=== PATIENT | female | born 1955 | race Caucasian/White ===

== ENCOUNTER 2020-10-25 15:57 | Inpatient (IN) | payer MEDICARE, OTHER ==
[~2020-10-25] VITALS: Ht 162.6 cm; Wt 46.4 kg
--- NOTE | 2020-10-25 16:20 | NUR ---
Dr Durant at the bedside for MSE.
[2020-10-25 17:00] LABS: BASOPHILS # (AUTO) 0.1 K/uL (0.0-8.0); BASOPHILS % (AUTO) 0.8 % (0.0-2.0); EOSINOPHILS % (AUTO) 0.4 % (0.0-7.0); HEMATOCRIT 38.5 % (31.2-41.9); HEMOGLOBIN 12.7 g/dL (10.9-14.3); LYMPHOCYTES # (AUTO) 1.6 K/uL (20.0-40.0); LYMPHOCYTES % (AUTO) 16.7 % (20.5-51.5); MEAN CORPUSCULAR HGB CONC 33 g/dL (32.3-35.6); MEAN CORPUSCULAR VOLUME 93.8 fL (75.5-95.3); MONOCYTES # (AUTO) 0.5 K/uL (2.0-10.0); MONOCYTES % (AUTO) 5.5 % (0.0-11.0); NEUTROPHILS # (AUTO) 7.1 K/uL (1.8-8.9); NEUTROPHILS % (AUTO) 76.6 % (38.5-71.5); PLATELET COUNT (AUTO) 234 K/uL (179-408); RED BLOOD CELL COUNT(AUTO) 4.11 MIL/uL (3.63-4.92); WHITE BLOOD COUNT (AUTO) 9.3 K/uL (3.8-11.8)
[2020-10-25] MEDS ORDERED: IV NORMAL SALINE 500 ML BAG IV ONE (17:00)
--- NOTE | 2020-10-25 17:01 | NUR ---
Attempted x3 to place HL in patient, but unable to. Dr Durant order midline/PICC Per pt request.
[2020-10-25 17:08] LABS: CREATININE 0.8 mg/dL (0.6-1.3)
[2020-10-25 17:25] LABS: BILIRUBIN,DIRECT 0.1 mg/dL (0.0-0.2); BILIRUBIN,TOTAL 0.3 mg/dL (0.2-1.0); TOTAL PROTEIN, SERUM 8.5 g/dL (6.4-8.2)
--- NOTE | 2020-10-25 18:02 | NUR ---
Called to supervisorto get bed for admit to M/S, No bed avail.
--- NOTE | 2020-10-25 19:43 | NUR ---
Patient will be going into [facility]
[2020-10-25] MEDS ORDERED: HYDROCODONE/APAP 5-325MG TABLET PO PRN (20:00)
[2020-10-25] MEDS ORDERED: MAGNESIUM HYDROXIDE 30 ML LIQUID UDC PO PRN (20:00)
[2020-10-25] MEDS ORDERED: Z GUARD REMEDY PASTE 57 GM TUBE TOP PRN (20:00)
[2020-10-25] MEDS ORDERED: ONDANSETRON 4 MG/2 ML VIAL IV PRN (20:00)
--- NOTE | 2020-10-25 20:07 | NUR ---
Gave report to Med Surg nurse Leta.
--- NOTE | 2020-10-25 20:50 | NUR ---
Admitted a 65 y/o female to [facility] with admitting diagnosis of Sacral wound and FTT. Pt is ambulatory, transferred to bed by herself. Pt is A&Ox4, verbally responsive and able to make needs known. Head to toe assessment done, L posterior hip wound noted. Gets SOB on exertion. RAYMOND midline intact and patent. Admission care rendered, belongings checked and at bedside. Safety measures initiated, call light within reach, will continue to monitor.
--- NOTE | 2020-10-25 20:54 | NUR ---
Pt. admitted to tele, under care of Dr. Wall Dx: left decupitis Belongs List completed
[2020-10-25 21:17] VITALS: BP 137/79
[2020-10-25] MEDS ORDERED: IPRATROPIUM BROMIDE 0.5 MG/2.5 ML NEBU NEB PRN ×2 (21:45→22:00)
[2020-10-25] MEDS: ACETAMINOPHEN 325 MG TABLET PO PRN (22:04)
[2020-10-26] MEDS: ALBUTEROL SULFATE 1.25 MG/3 ML NEBU NEB PRN ×2 (01:20→21:13)
[2020-10-26] MEDS: IPRATROPIUM BROMIDE 0.5 MG/2.5 ML NEBU NEB PRN ×2 (01:20→21:13)
[2020-10-26 04:00] VITALS: BP 135/73
[2020-10-26 06:32] LABS: BASOPHILS # (AUTO) 0.1 K/uL (0.0-8.0); BASOPHILS % (AUTO) 1.1 % (0.0-2.0); EOSINOPHILS # (AUTO) 0.2 K/uL (0.0-0.7); EOSINOPHILS % (AUTO) 2.4 % (0.0-7.0); HEMATOCRIT 36.9 % (31.2-41.9); HEMOGLOBIN 12.1 g/dL (10.9-14.3); LYMPHOCYTES # (AUTO) 2.7 K/uL (20.0-40.0); LYMPHOCYTES % (AUTO) 40.6 % (20.5-51.5); MEAN CORPUSCULAR HEMOGLOBIN 31.1 uug (24.7-32.8); MEAN CORPUSCULAR HGB CONC 33 g/dL (32.3-35.6); MEAN CORPUSCULAR VOLUME 94.7 fL (75.5-95.3); MONOCYTES # (AUTO) 0.5 K/uL (2.0-10.0); NEUTROPHILS # (AUTO) 3.2 K/uL (1.8-8.9); NEUTROPHILS % (AUTO) 47.9 % (38.5-71.5); PLATELET COUNT (AUTO) 201 K/uL (179-408); WHITE BLOOD COUNT (AUTO) 6.7 K/uL (3.8-11.8)
--- NOTE | 2020-10-26 06:34 | NUR ---
Slept intermittently through the night. No s/s of acute distress, denies any pain or discomfort. Patient tolerated medications well. IV access on RAYMOND midline intact and patent. Pending wound consult. Will endorse to incoming nurse.
[2020-10-26 06:54] LABS: THYROID STIMULATING HORMONE 3.658 mIU/mL (0.358-3.740)
[2020-10-26 07:02] LABS: CREATININE 0.9 mg/dL (0.6-1.3); MAGNESIUM 2.1 mg/dL (1.8-2.4); PHOSPHOROUS 4.4 mg/dL (2.5-4.9); POTASSIUM 4.1 mmol/L (3.5-5.1)
[2020-10-26] MEDS: PANTOPRAZOLE SODIUM 40 MG TABLET.DR PO SCH (07:11)
--- NOTE | 2020-10-26 11:16 | NUR ---
WOUND CARE CONSULT: PT PRESENTS WITH STAGE 4 ULCER TO LEFT BUTTOCK/HIP AREA, PRESENT ON ADMISSION. RECOMMEND SURGICAL CONSULT. DR MONGE NOTIFIED OF CONSULT REQUEST. RECOMMENDATIONS MADE FOR SKIN PROTECTION. DISCUSSED WITH NURSING STAFF. MD IN AGREEMENT WITH PLAN OF CARE.
[2020-10-26 11:32] VITALS: BP 126/78
[2020-10-26 16:00] VITALS: BP 156/84
[2020-10-26] MEDS ORDERED: LORAZEPAM 1 MG TABLET PO ONE (20:15)
[2020-10-26 20:16] VITALS: BP 147/66
[2020-10-26] MEDS: ACETAMINOPHEN 325 MG TABLET PO PRN (21:26)
[2020-10-27 04:21] VITALS: BP 152/69
--- NOTE | 2020-10-27 05:28 | NUR ---
Pt slept throughout the night. Denies pain or SOB. Tolerated all medications given. Wound care to left hip provided. Safety and comfort provided. No other issues or concerns at this time, will endorse to day shift.
[2020-10-27] MEDS: PANTOPRAZOLE SODIUM 40 MG TABLET.DR PO SCH (06:12)
[2020-10-27] MEDS: ACETAMINOPHEN 325 MG TABLET PO PRN ×2 (06:28→16:44)
[2020-10-27 06:40] LABS: BASOPHILS # (AUTO) 0.1 K/uL (0.0-8.0); EOSINOPHILS # (AUTO) 0.2 K/uL (0.0-0.7); EOSINOPHILS % (AUTO) 2.5 % (0.0-7.0); HEMOGLOBIN 12.1 g/dL (10.9-14.3); LYMPHOCYTES # (AUTO) 1.9 K/uL (20.0-40.0); LYMPHOCYTES % (AUTO) 32.2 % (20.5-51.5); MEAN CORPUSCULAR HEMOGLOBIN 30.9 uug (24.7-32.8); MEAN CORPUSCULAR HGB CONC 33 g/dL (32.3-35.6); MEAN CORPUSCULAR VOLUME 94.2 fL (75.5-95.3); MONOCYTES # (AUTO) 0.4 K/uL (2.0-10.0); MONOCYTES % (AUTO) 7.4 % (0.0-11.0); NEUTROPHILS # (AUTO) 3.4 K/uL (1.8-8.9); NEUTROPHILS % (AUTO) 56.9 % (38.5-71.5); PLATELET COUNT (AUTO) 203 K/uL (179-408); RED BLOOD CELL COUNT(AUTO) 3.93 MIL/uL (3.63-4.92)
[2020-10-27 07:19] LABS: CREATININE 0.5 mg/dL (0.6-1.3); MAGNESIUM 2.1 mg/dL (1.8-2.4); PHOSPHOROUS 4.3 mg/dL (2.5-4.9); POTASSIUM 4.2 mmol/L (3.5-5.1)
[2020-10-27] MEDS: ENSURE CLEAR 240 ML LIQUID (MIX BERRY) PO SCH (08:02)
[2020-10-27] MEDS: ALBUTEROL SULFATE 1.25 MG/3 ML NEBU NEB PRN ×2 (09:25→15:10)
[2020-10-27] MEDS: IPRATROPIUM BROMIDE 0.5 MG/2.5 ML NEBU NEB PRN ×2 (09:25→15:10)
[2020-10-27] MEDS: SODIUM HYPOCHLORITE 0.25% (HALF STRENGTH) 480 ML BOTTLE TOP SCH (10:30)
[2020-10-27 12:00] VITALS: BP 155/68
[2020-10-27 15:32] VITALS: BP 138/64
--- NOTE | 2020-10-27 16:48 | NUR ---
pt is refusing to do the wound dressing made aware
--- NOTE | 2020-10-27 19:00 | NUR ---
RECD PT IN BED,ALERT AND ORIENTED, NEEDS ATTENDED TO, VITAL SIGNS TAKEN AND RECORDED.
[2020-10-27 20:00] VITALS: BP 141/57
[2020-10-27] MEDS: LORAZEPAM 1 MG TABLET PO PRN (20:23)
--- NOTE | 2020-10-27 20:23 | NUR ---
REQUESTED ATIVAN 1MG. P.O. TO HELP WITH HER ANXIETY AND AGITATION, RESTED FAIRLY WELL,MIDLINE ON RIGHT UPPER ARM ,FLUSHED PER PROTOCOL, RESP TREATMENTS GIVEN ORDERE, TOLERATED WELL.SLEPT ON AND OFF.
--- NOTE | 2020-10-28 00:18 | NUR ---
WOUND CARE RENDERED TO LEFT HIP DECUB.HS CARE DONE, AMBULATED AROUND THE UNIT.
--- NOTE | 2020-10-28 03:34 | NUR ---
RESTED FAIRLY WELL.KEPT WARM AND COMFORTABLE.
[2020-10-28 04:00] VITALS: BP 138/66
--- NOTE | 2020-10-28 06:18 | NUR ---
UNEVENTFUL NOC, SLEPT WELL, NO DISTRESS NOTED.
[2020-10-28 06:25] LABS: BASOPHILS % (AUTO) 0.6 % (0.0-2.0); EOSINOPHILS # (AUTO) 0.1 K/uL (0.0-0.7); EOSINOPHILS % (AUTO) 1.6 % (0.0-7.0); HEMATOCRIT 38.3 % (31.2-41.9); HEMOGLOBIN 12.5 g/dL (10.9-14.3); LYMPHOCYTES # (AUTO) 1.6 K/uL (20.0-40.0); LYMPHOCYTES % (AUTO) 24.4 % (20.5-51.5); MEAN CORPUSCULAR HEMOGLOBIN 30.6 uug (24.7-32.8); MEAN CORPUSCULAR HGB CONC 33 g/dL (32.3-35.6); MEAN CORPUSCULAR VOLUME 93.9 fL (75.5-95.3); MONOCYTES # (AUTO) 0.4 K/uL (2.0-10.0); MONOCYTES % (AUTO) 6.4 % (0.0-11.0); NEUTROPHILS # (AUTO) 4.3 K/uL (1.8-8.9); PLATELET COUNT (AUTO) 222 K/uL (179-408); RED BLOOD CELL COUNT(AUTO) 4.08 MIL/uL (3.63-4.92); WHITE BLOOD COUNT (AUTO) 6.4 K/uL (3.8-11.8)
[2020-10-28 06:45] LABS: CREATININE 0.7 mg/dL (0.6-1.3); MAGNESIUM 2.1 mg/dL (1.8-2.4)
[2020-10-28] MEDS: PANTOPRAZOLE SODIUM 40 MG TABLET.DR PO SCH (07:11)
[2020-10-28] MEDS: ENSURE CLEAR 240 ML LIQUID (MIX BERRY) PO SCH (07:59)
[2020-10-28] MEDS: LORAZEPAM 1 MG TABLET PO PRN ×2 (10:03→22:32)
[2020-10-28] MEDS: SODIUM HYPOCHLORITE 0.25% (HALF STRENGTH) 480 ML BOTTLE TOP SCH (10:12)
[2020-10-28 12:07] VITALS: BP 143/80
--- NOTE | 2020-10-28 12:33 | NUR ---
dressing change per md orders
[2020-10-28 15:32] LABS: *BILIRUBIN,URIN NEGATIVE (NEGATIVE); *BLOOD, URINE NEGATIVE (NEGATIVE); *CLARITY,URINE CLEAR (CLEAR); *COLOR,URINE YELLOW (YELLOW); *KETONES,URINE NEGATIVE (NEGATIVE); *UROBILINOGEN,URINE 0.2 E.U./dl (NORMAL); LEUKOCYTE ESTERASE ,URINE NEGATIVE (NEGATIVE); NITRITE, URINE NEGATIVE (NEGATIVE); PH,URINE 6.5 (5.0-8.0); UGLUCOSE NEGATIVE (NEGATIVE)
[2020-10-28 15:37] LABS: *AMPHETAMINE, URINE NEGATIVE (NEGATIVE); *CANNABINOID, URINE POSITIVE (NEGATIVE); *COCCAINE, URINE NEGATIVE (NEGATIVE); *OPIATE, URINE NEGATIVE (NEGATIVE); *PHENCYCLIDINE SCREEN,URINE NEGATIVE (NEGATIVE)
[2020-10-28 16:14] VITALS: BP 133/78
--- NOTE | 2020-10-28 19:30 | NUR ---
Patient report received from solderer furnace. Patient is alert and oriented x 3-4. Resting in bed. Calm and cooperative. Has a midline right upper arm, patent. Comfortable on 2L of oxygen. Patient is ambulatory. Patient is scheduled for a wound debridement tomorrow, will follow up for consents. Bed in low and locked position. Call light within reach.
[2020-10-28] MEDS: IPRATROPIUM BROMIDE 0.5 MG/2.5 ML NEBU NEB PRN (20:12)
[2020-10-28] MEDS: ALBUTEROL SULFATE 1.25 MG/3 ML NEBU NEB PRN (20:12)
[2020-10-28 20:21] VITALS: BP 154/83
[2020-10-29 04:21] VITALS: BP 150/79
--- NOTE | 2020-10-29 06:03 | NUR ---
Patient slept well. Calm and cooperative. Patient comfortable on 2L of oxygen. No signs of shortness of breath or pain noted. Patient given Ativan around 2300 due to stated anxiety. Call light with in reach. Will continue to monitor.
[2020-10-29] MEDS: PANTOPRAZOLE SODIUM 40 MG TABLET.DR PO SCH (06:13)
[2020-10-29 06:42] LABS: BASOPHILS # (AUTO) 0.1 K/uL (0.0-8.0); BASOPHILS % (AUTO) 1.4 % (0.0-2.0); EOSINOPHILS # (AUTO) 0.1 K/uL (0.0-0.7); EOSINOPHILS % (AUTO) 1.6 % (0.0-7.0); HEMATOCRIT 39.4 % (31.2-41.9); HEMOGLOBIN 12.9 g/dL (10.9-14.3); LYMPHOCYTES # (AUTO) 2.1 K/uL (20.0-40.0); LYMPHOCYTES % (AUTO) 27.5 % (20.5-51.5); MEAN CORPUSCULAR HEMOGLOBIN 30.9 uug (24.7-32.8); MEAN CORPUSCULAR HGB CONC 33 g/dL (32.3-35.6); MEAN CORPUSCULAR VOLUME 94.1 fL (75.5-95.3); MONOCYTES # (AUTO) 0.6 K/uL (2.0-10.0); MONOCYTES % (AUTO) 7.4 % (0.0-11.0); NEUTROPHILS # (AUTO) 4.8 K/uL (1.8-8.9); NEUTROPHILS % (AUTO) 62.1 % (38.5-71.5); PLATELET COUNT (AUTO) 219 K/uL (179-408); RED BLOOD CELL COUNT(AUTO) 4.19 MIL/uL (3.63-4.92); WHITE BLOOD COUNT (AUTO) 7.7 K/uL (3.8-11.8)
[2020-10-29 07:00] LABS: CREATININE 0.6 mg/dL (0.6-1.3); MAGNESIUM 2.1 mg/dL (1.8-2.4); PHOSPHOROUS 4.4 mg/dL (2.5-4.9); POTASSIUM 4.1 mmol/L (3.5-5.1)
[2020-10-29] MEDS: IPRATROPIUM BROMIDE 0.5 MG/2.5 ML NEBU NEB PRN (07:59)
[2020-10-29] MEDS: ALBUTEROL SULFATE 1.25 MG/3 ML NEBU NEB PRN (07:59)
[2020-10-29] MEDS: LORAZEPAM 1 MG TABLET PO PRN ×2 (09:32→22:40)
[2020-10-29] MEDS: ENSURE CLEAR 240 ML LIQUID (MIX BERRY) PO SCH (09:33)
[2020-10-29] MEDS: SODIUM HYPOCHLORITE 0.25% (HALF STRENGTH) 480 ML BOTTLE TOP SCH (09:33)
[2020-10-29] MEDS ORDERED: [UNRECOGNIZED DRUG - OTHER] PO (10:00)
[2020-10-29] MEDS ORDERED: MULT-594 PO (10:00)
[2020-10-29] MEDS ORDERED: LACT1CAP69 PO (10:00)
[2020-10-29 11:30] VITALS: BP 132/79
--- NOTE | 2020-10-29 14:45 | NUR ---
Keli wound team is at bedside for wound debridement.
[2020-10-29 15:39] VITALS: BP 122/91
--- NOTE | 2020-10-29 18:34 | NUR ---
Patient was stable throughout the shift. No changes in mental status, remained AO x 4. However, patient was sleepy and had several naps throughout the day. Ativan 1 mg PO given in Am for anxiety, effective. Kept on O2 2LPM via NC, saturating from 93-97%. No signs of acute distress. Afebrile, no signs of systemic infection. Continent and ambulatory, with standby assist. Patient instructed to ask for assistance via call button when going to bathroom because of s/e of Ativan. Pt tolerated PT exercises, able to ambulate with them on O2. 1 BM today. No complaints of pain even after wound debridement. Wound care done as ordered. Cleanse with NS and packed wound on L hip with Gauze and Dakin's solution and covered with dry non-adhesive dressing, tolerated well.
[2020-10-29 20:03] VITALS: BP 157/85
[2020-10-29 20:05] VITALS: BP 105/59
[2020-10-29 20:09] VITALS: BP 157/85
--- NOTE | 2020-10-29 22:30 | NUR ---
RECEIVED PATIENT FROM [employer]. PATIENT IS A/O X4. DRESSING NOTED TO LEFT HIP, CHANGED PER RESTAURANT AREA MANAGER. PATIENT GIVEN ATIVAN 1MG PO PRN FOR ANXIETY. VS WNL. DENIES PAIN AT THIS TIME. MID-LINE NOTED TO RIGHT UPPER ARM, INTACT AND PATENT. CALL LIGHT IN REACH. ALL NEEDS ATTENDED. WILL CONTINUE TO MONITOR AND ASSESS.
--- NOTE | 2020-10-29 23:54 | NUR ---
PATIENT GIVEN BACK TO REGISTRY NURSE. REPORT GIVEN TO NURSE.
[2020-10-30 04:42] VITALS: BP 147/84
[2020-10-30] MEDS: LORAZEPAM 1 MG TABLET PO PRN ×3 (06:10→22:42)
[2020-10-30] MEDS: PANTOPRAZOLE SODIUM 40 MG TABLET.DR PO SCH (06:10)
[2020-10-30 06:39] LABS: BASOPHILS # (AUTO) 0.1 K/uL (0.0-8.0); BASOPHILS % (AUTO) 1.1 % (0.0-2.0); EOSINOPHILS # (AUTO) 0.1 K/uL (0.0-0.7); EOSINOPHILS % (AUTO) 1.5 % (0.0-7.0); HEMATOCRIT 40.5 % (31.2-41.9); HEMOGLOBIN 13.4 g/dL (10.9-14.3); LYMPHOCYTES # (AUTO) 2.2 K/uL (20.0-40.0); LYMPHOCYTES % (AUTO) 28.4 % (20.5-51.5); MEAN CORPUSCULAR HGB CONC 33 g/dL (32.3-35.6); MEAN CORPUSCULAR VOLUME 93.9 fL (75.5-95.3); MONOCYTES # (AUTO) 0.6 K/uL (2.0-10.0); MONOCYTES % (AUTO) 7.4 % (0.0-11.0); NEUTROPHILS # (AUTO) 4.7 K/uL (1.8-8.9); NEUTROPHILS % (AUTO) 61.6 % (38.5-71.5); PLATELET COUNT (AUTO) 227 K/uL (179-408); RED BLOOD CELL COUNT(AUTO) 4.32 MIL/uL (3.63-4.92); WHITE BLOOD COUNT (AUTO) 7.6 K/uL (3.8-11.8)
[2020-10-30 06:54] LABS: CREATININE 0.6 mg/dL (0.6-1.3); PHOSPHOROUS 3.8 mg/dL (2.5-4.9); POTASSIUM 3.6 mmol/L (3.5-5.1)
--- NOTE | 2020-10-30 07:25 | NUR ---
Received patient awake in bed. AOx4. On room air. no signs of acute distress. no complaints of pain/ discomfort at this time. will continue to monitor.
[2020-10-30] MEDS: ENSURE CLEAR 240 ML LIQUID (MIX BERRY) PO SCH (09:13)
[2020-10-30] MEDS: SODIUM HYPOCHLORITE 0.25% (HALF STRENGTH) 480 ML BOTTLE TOP SCH (09:13)
[2020-10-30 11:33] VITALS: BP 108/70
[2020-10-30 15:30] VITALS: BP 118/84
--- NOTE | 2020-10-30 19:30 | NUR ---
No significant changes during shift. Patient awake, AOx4. on room air, 95% O2 saturation. Wound care done as ordered. Patient complained of anxiety, Ativan PRN given as ordered. Patient denies pain/ discomfort at this time. Compliant with medication and care. Will endorse to incoming shift for continuity of care.
--- NOTE | 2020-10-30 20:00 | NUR ---
pt refused dressing change and photo taken.
[2020-10-30 20:12] VITALS: BP 118/70
[2020-10-31 04:12] VITALS: BP 147/75
[2020-10-31] MEDS: PANTOPRAZOLE SODIUM 40 MG TABLET.DR PO SCH (06:24)
--- NOTE | 2020-10-31 06:36 | NUR ---
Pt resting well in between care; refusing wound dressing change and photo taken at this time; needs attended; continue to monitor; continue plan of care.
[2020-10-31 06:39] LABS: BASOPHILS # (AUTO) 0.1 K/uL (0.0-8.0); BASOPHILS % (AUTO) 0.5 % (0.0-2.0); EOSINOPHILS # (AUTO) 0.1 K/uL (0.0-0.7); EOSINOPHILS % (AUTO) 1.4 % (0.0-7.0); HEMATOCRIT 43.2 % (31.2-41.9); HEMOGLOBIN 14.1 g/dL (10.9-14.3); LYMPHOCYTES % (AUTO) 31.8 % (20.5-51.5); MEAN CORPUSCULAR HEMOGLOBIN 30.7 uug (24.7-32.8); MEAN CORPUSCULAR HGB CONC 33 g/dL (32.3-35.6); MEAN CORPUSCULAR VOLUME 93.8 fL (75.5-95.3); MONOCYTES # (AUTO) 0.8 K/uL (2.0-10.0); MONOCYTES % (AUTO) 8.1 % (0.0-11.0); NEUTROPHILS # (AUTO) 5.5 K/uL (1.8-8.9); NEUTROPHILS % (AUTO) 58.2 % (38.5-71.5); PLATELET COUNT (AUTO) 252 K/uL (179-408); WHITE BLOOD COUNT (AUTO) 9.5 K/uL (3.8-11.8)
[2020-10-31 07:02] LABS: BILIRUBIN,TOTAL 0.4 mg/dL (0.2-1.0); CREATININE 0.8 mg/dL (0.6-1.3); MAGNESIUM 2.3 mg/dL (1.8-2.4); PHOSPHOROUS 3.5 mg/dL (2.5-4.9); POTASSIUM 4.7 mmol/L (3.5-5.1); TOTAL PROTEIN, SERUM 8.5 g/dL (6.4-8.2)
[2020-10-31] MEDS: SODIUM HYPOCHLORITE 0.25% (HALF STRENGTH) 480 ML BOTTLE TOP SCH (09:10)
[2020-10-31] MEDS: ENSURE CLEAR 240 ML LIQUID (MIX BERRY) PO SCH (09:10)
[2020-10-31] MEDS: LORAZEPAM 1 MG TABLET PO PRN ×2 (09:10→18:15)
[2020-10-31 12:00] VITALS: BP 126/97
[2020-10-31] MEDS ORDERED: IPRA0.2S6 NEB (15:15)
[2020-10-31] MEDS ORDERED: ZINC220T4 PO (15:15)
[2020-10-31] MEDS ORDERED: ALBU1.25 NEB (15:15)
[2020-10-31] MEDS ORDERED: LORA-259 PO (15:15)
[2020-10-31] MEDS ORDERED: ASCO500C18 PO (15:15)
[2020-10-31] MEDS ORDERED: PANT40TA2 PO (15:15)
[2020-10-31] MEDS ORDERED: ACID1TAB4 PO (15:15)
[2020-10-31] MEDS ORDERED: MAGN400O6 PO (15:15)
[2020-10-31] MEDS ORDERED: LACT296L PO (15:15)
[2020-10-31] MEDS ORDERED: MENT71OI TOP (15:15)
[2020-10-31] MEDS ORDERED: SODI480S2 TOP (15:15)
[2020-10-31] MEDS ORDERED: ACET325T53 PO (15:15)
[2020-10-31 16:00] VITALS: BP 103/69
[2020-10-31 20:00] VITALS: BP 157/66
--- NOTE | 2020-10-31 20:15 | NUR ---
Patient in bed awake alertx4.Denies pain.No SOB .On RA.Compliant with medication.Ambulates to bathroom.Midline on right upper arm in place.Call light with in reach.Will continue to monitor.
[2020-10-31] MEDS: ACIDOPHILUS/BULGARICUS CHEW TAB PO SCH (20:41)
[2020-10-31] MEDS ORDERED: DOCUSATE SODIUM 100 MG CAPSULE PO SCH (21:00)
[2020-11-01] MEDS: LORAZEPAM 1 MG TABLET PO PRN ×2 (00:29→08:09)
[2020-11-01 04:00] VITALS: BP 139/70
[2020-11-01] MEDS: PANTOPRAZOLE SODIUM 40 MG TABLET.DR PO SCH (06:08)
[2020-11-01] MEDS: ACIDOPHILUS/BULGARICUS CHEW TAB PO SCH (08:09)
[2020-11-01] MEDS: ENSURE CLEAR 240 ML LIQUID (MIX BERRY) PO SCH (08:09)
[2020-11-01] MEDS: SODIUM HYPOCHLORITE 0.25% (HALF STRENGTH) 480 ML BOTTLE TOP SCH (08:09)
[2020-11-01 12:00] VITALS: BP 130/81
--- NOTE | 2020-11-01 13:43 | NUR ---
dc orders received noted and carried out,dc midline per md orders,rn report given to correction pt left the facility via ambulances in stable condition
== END 2020-11-01 13:42 | DRG 580 ==
LOC: ER 15:59 → MEDSURG3 20:33
PROVIDERS: ADMIT Student in an Organized Health Care Education/Training Program; ATTEND Internal Medicine
PROC: 05H533Z Insertion of Infusion Device into Right Subclavian Vein, Percutaneous Approach (ICD-10-PCS; principal; 2020-10-25)
PROC: B546ZZA Ultrasonography of Right Subclavian Vein, Guidance (ICD-10-PCS; 2020-10-25)
PROC: 0KBP0ZZ Excision of Left Hip Muscle, Open Approach (ICD-10-PCS; 2020-10-29)
DX: L89.224 Pressure ulcer of left hip, stage 4 (principal); D68.59 Other primary thrombophilia; E44.0 Moderate protein-calorie malnutrition; Z68.1 Body mass index [BMI] 19.9 or less, adult; R62.7 Adult failure to thrive; Z20.822 Contact with and (suspected) exposure to COVID-19; F41.9 Anxiety disorder, unspecified; G89.29 Other chronic pain; J44.9 Chronic obstructive pulmonary disease, unspecified; Z85.038 Personal history of other malignant neoplasm of large intestine; Z86.11 Personal history of tuberculosis; D64.9 Anemia, unspecified; Z90.49 Acquired absence of other specified parts of digestive tract; M19.90 Unspecified osteoarthritis, unspecified site
CPT/HCPCS: 36415; 71045; 83735; 84100; 84443; 85025; 93005; 94640; 94664; A4663; G0378; J3590; J7040; J7050; U0003

== ENCOUNTER 2021-07-02 12:38 | Inpatient (IN) | payer MEDICARE, OTHER ==
[~2021-07-02] VITALS: Ht 162.6 cm; Wt 39.9 kg
[~2021-07-02 12:38] MED LIST: ACET325T53 PO; ACID1TAB4 PO; ALBU1.25 NEB; ASCO500C18 PO; IPRA0.2S6 NEB; LACT296L PO; LORA-259 PO; MAGN400O6 PO; MENT71OI TOP; PANT40TA2 PO; SODI480S2 TOP; ZINC220T4 PO
[2021-07-02 13:49] LABS: HEMATOCRIT 43.6 % (31.2-41.9); MEAN CORPUSCULAR HEMOGLOBIN 31.5 uug (24.7-32.8); MEAN CORPUSCULAR VOLUME 94.1 fL (75.5-95.3); PLATELET COUNT (AUTO) 109 K/uL (179-408)
[2021-07-02 14:00] LABS: CREATININE 0.5 mg/dL (0.6-1.3); POTASSIUM 3.8 mmol/L (3.5-5.1)
[2021-07-02 14:13] LABS: BILIRUBIN,TOTAL 0.5 mg/dL (0.2-1.0); TOTAL PROTEIN, SERUM 7.2 g/dL (6.4-8.2)
[2021-07-02] MEDS ORDERED: DEXAMETHASONE SOD PHOSPHATE 4 MG INJ IV ONE (14:30)
[2021-07-02] MEDS ORDERED: DEXAMETHASONE SOD PHOSPHATE 10 MG INJ ONE (17:06)
[2021-07-03] MEDS ORDERED: MAGNESIUM HYDROXIDE 30 ML LIQUID UDC PO PRN (10:00)
[2021-07-03] MEDS ORDERED: Z GUARD REMEDY PASTE 57 GM TUBE TOP PRN (10:00)
[2021-07-03] MEDS ORDERED: ONDANSETRON 4 MG/2 ML VIAL IV PRN (10:00)
[2021-07-03] MEDS ORDERED: ENOXAPARIN SODIUM 40 MG/0.4 ML DISP.SYRIN SQ ONE (10:17)
[2021-07-03] MEDS ORDERED: AZITHROMYCIN 250 MG TABLET ONE (10:17)
[2021-07-03] MEDS: AZITHROMYCIN 250 MG TABLET PO SCH (10:21)
[2021-07-03] MEDS: ENOXAPARIN SODIUM 40 MG/0.4 ML DISP.SYRIN SQ SCH (10:29)
[2021-07-03] MEDS: DEXAMETHASONE SOD PHOSPHATE 4 MG INJ IV SCH (10:30)
[2021-07-03 10:33] LABS: HEMATOCRIT 45.8 % (31.2-41.9); MEAN CORPUSCULAR HEMOGLOBIN 31.5 uug (24.7-32.8); MEAN CORPUSCULAR VOLUME 95.5 fL (75.5-95.3); PLATELET COUNT (AUTO) 124 K/uL (179-408)
[2021-07-03 10:38] LABS: ABG BASE EXCESS 8.8 mmol/L; ABG HCO3 35.2 mmol/L; ABG PCO2 55.2 mmHg (35.0-45.0); ABG PH 7.423 (7.350-7.450); ABG PO2 81.2 mmHg (75.0-100.0); ABG SITE RIGHT RADIAL; ABG TOTAL HEMOGLOBIN 15.1 G/dL (12.0-16.0); COHb 0.3 % (0.5-1.5); MetHb 0.1 % (0.0-1.5); O2Hb 95.6 % (94.0-97.0); VENT MODE Nasal Cannula
[2021-07-03] MEDS ORDERED: DEXAMETHASONE SOD PHOSPHATE 10 MG INJ ONE (10:41)
[2021-07-03 10:46] LABS: BILIRUBIN,TOTAL 0.4 mg/dL (0.2-1.0); CREATININE 0.7 mg/dL (0.6-1.3); MAGNESIUM 2.2 mg/dL (1.8-2.4); PHOSPHOROUS 3.5 mg/dL (2.5-4.9); POTASSIUM 4.2 mmol/L (3.5-5.1); TOTAL PROTEIN, SERUM 7.5 g/dL (6.4-8.2)
[2021-07-03 10:49] LABS: THYROID STIMULATING HORMONE 0.953 mIU/mL (0.358-3.740)
[2021-07-03 11:00] VITALS: BP 137/81
[2021-07-03 16:00] VITALS: BP 141/84
[2021-07-03] MEDS: ACIDOPHILUS/BULGARICUS CHEW TAB PO SCH (17:27)
[2021-07-03 20:00] VITALS: BP 140/83
[2021-07-04] VITALS: BP 176/83
[2021-07-04] MEDS: hydrALAZINE HCL 25 MG TABLET PO PRN (02:30)
[2021-07-04] MEDS: ALPRAZOLAM 0.25 MG TABLET PO PRN ×2 (02:30→21:00)
[2021-07-04 04:38] VITALS: BP 172/89
[2021-07-04] MEDS: PANTOPRAZOLE SODIUM 40 MG TABLET.DR PO SCH (06:42)
[2021-07-04] MEDS: ASCORBIC ACID 500 MG TABLET PO SCH (08:16)
[2021-07-04] MEDS: AZITHROMYCIN 250 MG TABLET PO SCH (08:16)
[2021-07-04] MEDS: DEXAMETHASONE SOD PHOSPHATE 4 MG INJ IV SCH (08:16)
[2021-07-04] MEDS: ACIDOPHILUS/BULGARICUS CHEW TAB PO SCH ×2 (08:16→17:24)
[2021-07-04] MEDS: ZINC SULFATE 220 MG CAPSULE PO SCH (08:16)
[2021-07-04] MEDS: SODIUM HYPOCHLORITE 0.25% (HALF STRENGTH) 480 ML BOTTLE TOP SCH (08:17)
[2021-07-04] MEDS: ENOXAPARIN SODIUM 40 MG/0.4 ML DISP.SYRIN SQ SCH (08:18)
[2021-07-04 11:00] VITALS: BP 140/82
[2021-07-04] MEDS ORDERED: NALOXONE HCL 0.4 MG/ML AMPUL IV PRN (12:30)
[2021-07-04 16:00] VITALS: BP 134/84
[2021-07-04] MEDS: ENSURE ENLIVE (VAN) 240 ML LIQUID PO SCH (17:25)
[2021-07-04] MEDS: ARGININE/GLUTAMINE/CALCIUM BMB 1 EACH POWD.PACK PO SCH (17:25)
[2021-07-04 20:00] VITALS: BP 128/83
[2021-07-05] VITALS: BP 123/80
[2021-07-05 04:00] VITALS: BP 122/83
[2021-07-05] MEDS: PANTOPRAZOLE SODIUM 40 MG TABLET.DR PO SCH (06:25)
[2021-07-05] MEDS: ACIDOPHILUS/BULGARICUS CHEW TAB PO SCH ×2 (11:03→18:23)
[2021-07-05] MEDS: DEXAMETHASONE SOD PHOSPHATE 4 MG INJ IV SCH (11:03)
[2021-07-05] MEDS: ZINC SULFATE 220 MG CAPSULE PO SCH (11:04)
[2021-07-05] MEDS: ASCORBIC ACID 500 MG TABLET PO SCH (11:04)
[2021-07-05] MEDS: AZITHROMYCIN 250 MG TABLET PO SCH (11:04)
[2021-07-05] MEDS: ARGININE/GLUTAMINE/CALCIUM BMB 1 EACH POWD.PACK PO SCH ×2 (11:04→17:38)
[2021-07-05] MEDS: ENSURE ENLIVE (VAN) 240 ML LIQUID PO SCH ×3 (11:06→17:38)
[2021-07-05] MEDS: SODIUM HYPOCHLORITE 0.25% (HALF STRENGTH) 480 ML BOTTLE TOP SCH (11:06)
[2021-07-05] MEDS: ENOXAPARIN SODIUM 40 MG/0.4 ML DISP.SYRIN SQ SCH (11:43)
[2021-07-05] MEDS: METHADONE ORAL CONCENTRATE SOL 10 MG/ML ORAL.CONC PO SCH (11:50)
[2021-07-05 20:49] VITALS: BP 138/84
[2021-07-06 00:31] VITALS: BP 122/79
[2021-07-06 04:55] VITALS: BP 132/79
[2021-07-06] MEDS: PANTOPRAZOLE SODIUM 40 MG TABLET.DR PO SCH (06:10)
[2021-07-06 08:12] LABS: MEAN CORPUSCULAR HEMOGLOBIN 31.8 uug (24.7-32.8); MEAN CORPUSCULAR VOLUME 94.5 fL (75.5-95.3); PLATELET COUNT (AUTO) 126 K/uL (179-408)
[2021-07-06 08:26] LABS: CREATININE 0.6 mg/dL (0.6-1.3); MAGNESIUM 2.5 mg/dL (1.8-2.4); POTASSIUM 3.6 mmol/L (3.5-5.1)
[2021-07-06 08:35] VITALS: BP 158/80
[2021-07-06] MEDS: ACIDOPHILUS/BULGARICUS CHEW TAB PO SCH ×2 (09:08→16:39)
[2021-07-06] MEDS: AZITHROMYCIN 250 MG TABLET PO SCH (09:08)
[2021-07-06] MEDS: ASCORBIC ACID 500 MG TABLET PO SCH (09:08)
[2021-07-06] MEDS: ZINC SULFATE 220 MG CAPSULE PO SCH (09:08)
[2021-07-06] MEDS: DEXAMETHASONE SOD PHOSPHATE 4 MG INJ IV SCH (09:08)
[2021-07-06] MEDS: ENOXAPARIN SODIUM 40 MG/0.4 ML DISP.SYRIN SQ SCH (09:09)
[2021-07-06] MEDS: SODIUM HYPOCHLORITE 0.25% (HALF STRENGTH) 480 ML BOTTLE TOP SCH (09:11)
[2021-07-06] MEDS: ENSURE ENLIVE (VAN) 240 ML LIQUID PO SCH ×3 (09:11→16:39)
[2021-07-06] MEDS: ARGININE/GLUTAMINE/CALCIUM BMB 1 EACH POWD.PACK PO SCH ×2 (09:12→16:40)
[2021-07-06] MEDS: ALPRAZOLAM 0.25 MG TABLET PO PRN (10:22)
[2021-07-06 11:51] VITALS: BP 131/92
[2021-07-06] MEDS: METHADONE ORAL CONCENTRATE SOL 10 MG/ML ORAL.CONC PO SCH (12:28)
[2021-07-06 16:30] VITALS: BP 122/57
[2021-07-06 18:24] LABS: ABG BASE EXCESS 2.7 mmol/L; ABG HCO3 29.5 mmol/L; ABG PCO2 53.5 mmHg (35.0-45.0); ABG PH 7.359 (7.350-7.450); ABG PO2 37.2 mmHg (75.0-100.0); ABG SITE RIGHT RADIAL; ABG TOTAL HEMOGLOBIN 15.8 G/dL (12.0-16.0); COHb 0.8 % (0.5-1.5); MetHb 0.2 % (0.0-1.5); O2Hb 72.5 % (94.0-97.0)
[2021-07-06] MEDS: CEFTAZIDIME 2 G in IV DEXTROSE 5% 100 ML IV SCH (18:52)
[2021-07-06 20:00] VITALS: BP 150/75
[2021-07-07] VITALS: BP 165/89
[2021-07-07] MEDS: ALPRAZOLAM 0.25 MG TABLET PO PRN ×2 (00:36→16:03)
[2021-07-07] MEDS: ACETAMINOPHEN 325 MG TABLET PO PRN (00:38)
[2021-07-07 04:00] VITALS: BP 117/64
[2021-07-07] MEDS: PANTOPRAZOLE SODIUM 40 MG TABLET.DR PO SCH (07:24)
[2021-07-07 08:13] LABS: HEMATOCRIT 43.1 % (31.2-41.9); MEAN CORPUSCULAR HEMOGLOBIN 31.4 uug (24.7-32.8); MEAN CORPUSCULAR VOLUME 94.9 fL (75.5-95.3); PLATELET COUNT (AUTO) 136 K/uL (179-408)
[2021-07-07 08:36] LABS: CREATININE 0.7 mg/dL (0.6-1.3); MAGNESIUM 2.6 mg/dL (1.8-2.4); PHOSPHOROUS 3.6 mg/dL (2.5-4.9); POTASSIUM 3.6 mmol/L (3.5-5.1)
[2021-07-07] MEDS: ENSURE ENLIVE (VAN) 240 ML LIQUID PO SCH ×3 (09:10→16:03)
[2021-07-07] MEDS: ACIDOPHILUS/BULGARICUS CHEW TAB PO SCH ×2 (09:10→16:03)
[2021-07-07] MEDS: ASCORBIC ACID 500 MG TABLET PO SCH (09:10)
[2021-07-07] MEDS: ARGININE/GLUTAMINE/CALCIUM BMB 1 EACH POWD.PACK PO SCH ×2 (09:11→16:03)
[2021-07-07] MEDS: ZINC SULFATE 220 MG CAPSULE PO SCH (09:11)
[2021-07-07] MEDS: DEXAMETHASONE SOD PHOSPHATE 4 MG INJ IV SCH (09:11)
[2021-07-07] MEDS: ENOXAPARIN SODIUM 40 MG/0.4 ML DISP.SYRIN SQ SCH (09:21)
[2021-07-07] MEDS: SODIUM HYPOCHLORITE 0.25% (HALF STRENGTH) 480 ML BOTTLE TOP SCH (09:25)
[2021-07-07] MEDS: CEFTAZIDIME 2 G in IV DEXTROSE 5% 100 ML IV SCH ×2 (09:30→18:30)
[2021-07-07 12:00] VITALS: BP 138/78
[2021-07-07] MEDS: METHADONE ORAL CONCENTRATE SOL 10 MG/ML ORAL.CONC PO SCH (12:26)
[2021-07-07 16:00] VITALS: BP 141/75
[2021-07-08] MEDS: hydrALAZINE HCL 25 MG TABLET PO PRN (01:40)
[2021-07-08] MEDS: ALPRAZOLAM 0.25 MG TABLET PO PRN ×2 (01:41→16:37)
[2021-07-08] MEDS: CEFTAZIDIME 2 G in IV DEXTROSE 5% 100 ML IV SCH ×3 (02:30→17:45)
[2021-07-08] MEDS ORDERED: HYDROCODONE/APAP 5-325MG TABLET ONE (03:06)
[2021-07-08] MEDS: PANTOPRAZOLE SODIUM 40 MG TABLET.DR PO SCH (06:25)
[2021-07-08 07:15] LABS: HEMATOCRIT 40.1 % (31.2-41.9); MEAN CORPUSCULAR HEMOGLOBIN 31.4 uug (24.7-32.8); MEAN CORPUSCULAR VOLUME 94.4 fL (75.5-95.3); PLATELET COUNT (AUTO) 133 K/uL (179-408)
[2021-07-08 07:31] LABS: CREATININE 0.5 mg/dL (0.6-1.3); MAGNESIUM 2.3 mg/dL (1.8-2.4); PHOSPHOROUS 2.8 mg/dL (2.5-4.9); POTASSIUM 3.7 mmol/L (3.5-5.1)
[2021-07-08] MEDS: ENOXAPARIN SODIUM 40 MG/0.4 ML DISP.SYRIN SQ SCH (09:11)
[2021-07-08] MEDS: ACIDOPHILUS/BULGARICUS CHEW TAB PO SCH ×2 (09:36→17:44)
[2021-07-08] MEDS: DEXAMETHASONE SOD PHOSPHATE 4 MG INJ IV SCH (09:36)
[2021-07-08] MEDS: ZINC SULFATE 220 MG CAPSULE PO SCH (09:36)
[2021-07-08] MEDS: ASCORBIC ACID 500 MG TABLET PO SCH (09:36)
[2021-07-08] MEDS: ENSURE ENLIVE (VAN) 240 ML LIQUID PO SCH ×3 (09:37→17:44)
[2021-07-08] MEDS: ARGININE/GLUTAMINE/CALCIUM BMB 1 EACH POWD.PACK PO SCH ×2 (09:37→17:44)
[2021-07-08] MEDS: SODIUM HYPOCHLORITE 0.25% (HALF STRENGTH) 480 ML BOTTLE TOP SCH (09:38)
[2021-07-08 11:00] VITALS: BP 156/64
[2021-07-08] MEDS: METHADONE ORAL CONCENTRATE SOL 10 MG/ML ORAL.CONC PO SCH (12:07)
[2021-07-08 12:39] VITALS: BP 150/80
[2021-07-08 13:36] LABS: EOSINOPHILS % (MANUAL) 1 % (0-8); LYMPHOCYTES % (MANUAL) 20 % (20-40); MONOCYTES % (MANUAL) 16 % (2-10); NEUTROPHILS % (MANUAL) 63 % (42-75)
[2021-07-08 16:00] VITALS: BP 140/75
[2021-07-08] MEDS ORDERED: HYDR-894 PO (16:29)
[2021-07-08] MEDS ORDERED: GUAI120013 PO (16:29)
[2021-07-08] MEDS ORDERED: METH10OR11 PO (16:29)
[2021-07-08] MEDS ORDERED: PANT40TA49 PO (16:29)
[2021-07-08] MEDS ORDERED: NUTR1PAC14 PO (16:29)
[2021-07-08] MEDS ORDERED: ALPR0.25 PO (16:29)
[2021-07-08] MEDS ORDERED: OLME40TA12 PO (16:29)
[2021-07-08] MEDS ORDERED: CEFT2VIA29 IV (16:29)
[2021-07-08] MEDS ORDERED: Naloxone Hcl IV (16:29)
[2021-07-08] MEDS ORDERED: ENOX40DI SQ (16:29)
[2021-07-08 20:00] VITALS: BP 142/82
[2021-07-08] MEDS: ACETAMINOPHEN 325 MG TABLET PO PRN (22:18)
[2021-07-09 04:00] VITALS: BP 140/87
[2021-07-09] MEDS: CEFTAZIDIME 2 G in IV DEXTROSE 5% 100 ML IV SCH ×3 (04:08→18:06)
[2021-07-09] MEDS: PANTOPRAZOLE SODIUM 40 MG TABLET.DR PO SCH (06:20)
[2021-07-09] MEDS: ALPRAZOLAM 0.25 MG TABLET PO PRN ×2 (06:20→20:29)
[2021-07-09] MEDS: ZINC SULFATE 220 MG CAPSULE PO SCH (09:55)
[2021-07-09] MEDS: ASCORBIC ACID 500 MG TABLET PO SCH (09:55)
[2021-07-09] MEDS: DEXAMETHASONE SOD PHOSPHATE 4 MG INJ IV SCH (09:55)
[2021-07-09] MEDS: ACIDOPHILUS/BULGARICUS CHEW TAB PO SCH ×2 (09:55→18:05)
[2021-07-09] MEDS: ENSURE ENLIVE (VAN) 240 ML LIQUID PO SCH ×3 (09:56→18:05)
[2021-07-09] MEDS: ARGININE/GLUTAMINE/CALCIUM BMB 1 EACH POWD.PACK PO SCH ×2 (09:56→18:05)
[2021-07-09] MEDS: SODIUM HYPOCHLORITE 0.25% (HALF STRENGTH) 480 ML BOTTLE TOP SCH (09:57)
[2021-07-09] MEDS: ENOXAPARIN SODIUM 40 MG/0.4 ML DISP.SYRIN SQ SCH (09:58)
[2021-07-09 11:37] VITALS: BP 126/82
[2021-07-09] MEDS: METHADONE ORAL CONCENTRATE SOL 10 MG/ML ORAL.CONC PO SCH (13:19)
[2021-07-09 15:00] VITALS: BP 139/85
[2021-07-10] MEDS: CEFTAZIDIME 2 G in IV DEXTROSE 5% 100 ML IV SCH ×2 (03:41→09:31)
[2021-07-10] MEDS: ALPRAZOLAM 0.25 MG TABLET PO PRN ×2 (04:50→14:20)
[2021-07-10] MEDS: PANTOPRAZOLE SODIUM 40 MG TABLET.DR PO SCH (06:25)
[2021-07-10 06:50] LABS: HEMATOCRIT 41.3 % (31.2-41.9); MEAN CORPUSCULAR HEMOGLOBIN 31.2 uug (24.7-32.8); MEAN CORPUSCULAR VOLUME 94.9 fL (75.5-95.3); PLATELET COUNT (AUTO) 148 K/uL (179-408)
[2021-07-10 07:36] LABS: BILIRUBIN,TOTAL 0.4 mg/dL (0.2-1.0); CREATININE 0.7 mg/dL (0.6-1.3); MAGNESIUM 2.2 mg/dL (1.8-2.4); PHOSPHOROUS 2.8 mg/dL (2.5-4.9); POTASSIUM 3.9 mmol/L (3.5-5.1); TOTAL PROTEIN, SERUM 6.6 g/dL (6.4-8.2)
[2021-07-10] MEDS: ASCORBIC ACID 500 MG TABLET PO SCH (09:00)
[2021-07-10] MEDS: ACIDOPHILUS/BULGARICUS CHEW TAB PO SCH (09:00)
[2021-07-10] MEDS: ZINC SULFATE 220 MG CAPSULE PO SCH (09:00)
[2021-07-10] MEDS: DEXAMETHASONE SOD PHOSPHATE 4 MG INJ IV SCH (09:20)
[2021-07-10] MEDS: ENOXAPARIN SODIUM 40 MG/0.4 ML DISP.SYRIN SQ SCH (09:21)
[2021-07-10] MEDS: ARGININE/GLUTAMINE/CALCIUM BMB 1 EACH POWD.PACK PO SCH (09:21)
[2021-07-10] MEDS: ENSURE ENLIVE (VAN) 240 ML LIQUID PO SCH ×2 (09:21→14:20)
[2021-07-10] MEDS: SODIUM HYPOCHLORITE 0.25% (HALF STRENGTH) 480 ML BOTTLE TOP SCH (09:22)
[2021-07-10] MEDS: METHADONE ORAL CONCENTRATE SOL 10 MG/ML ORAL.CONC PO SCH (12:58)
[2021-07-10 13:29] VITALS: BP 106/62
== END 2021-07-10 14:35 | DRG 177 ==
LOC: ER 12:38 → TRANSITION 23:59 → TELE3 07-03 10:26 → MEDSURG3 07-08 10:50
PROVIDERS: ADMIT Nurse Practitioner Acute Care; ATTEND Internal Medicine
PROC: 05H933Z Insertion of Infusion Device into Right Brachial Vein, Percutaneous Approach (ICD-10-PCS; principal; 2021-07-02)
PROC: 05H933Z Insertion of Infusion Device into Right Brachial Vein, Percutaneous Approach (ICD-10-PCS; 2021-07-09)
DX: U07.1 COVID-19 (principal); L89.224 Pressure ulcer of left hip, stage 4; J12.82 Pneumonia due to coronavirus disease 2019; J96.21 Acute and chronic respiratory failure with hypoxia; J96.22 Acute and chronic respiratory failure with hypercapnia; E43 Unspecified severe protein-calorie malnutrition; J44.0 Chronic obstructive pulmonary disease with (acute) lower respiratory infection; D68.59 Other primary thrombophilia; R64 Cachexia; D75.1 Secondary polycythemia; D69.6 Thrombocytopenia, unspecified; E88.09 Other disorders of plasma-protein metabolism, not elsewhere classified; F11.90 Opioid use, unspecified, uncomplicated; F17.290 Nicotine dependence, other tobacco product, uncomplicated; F32.A Depression, unspecified; F41.9 Anxiety disorder, unspecified; M40.209 Unspecified kyphosis, site unspecified; R62.7 Adult failure to thrive; Z88.1 Allergy status to other antibiotic agents; Z88.5 Allergy status to narcotic agent; Z88.8 Allergy status to other drugs, medicaments and biological substances
CPT/HCPCS: 36415; 36600; 70030-TC; 71045; 83605; 83615; 83735; 84100; 84443; 85025; 85730; 86140; 87040; 87070; 87077; 93005; A4217; A4663; A6209; G0378; J0713; J1100; J1650; J7060; Q0144

== ENCOUNTER 2022-03-22 01:09 | Inpatient (IN) | payer MEDICARE, OTHER ==
[~2022-03-22] VITALS: Ht 162.6 cm; Wt 38.1 kg
[~2022-03-22 01:09] MED LIST changes: +ALPR0.25 PO; +CEFT2VIA29 IV; +ENOX40DI SQ; +GUAI120013 PO; +HYDR-894 PO; +METH10OR11 PO; +NUTR1PAC14 PO; +Naloxone Hcl IV; +OLME40TA12 PO; +PANT40TA49 PO
--- NOTE | 2022-03-22 01:45 | NUR ---
First contact. Pt presently on monitor. C/O Left hip pain after fall that occurred 2 days ago. Pt admits to tripping on carpet.
[2022-03-22 02:14] LABS: HEMATOCRIT 41.7 % (31.2-41.9); MEAN CORPUSCULAR HEMOGLOBIN 32.1 uug (24.7-32.8); MEAN CORPUSCULAR VOLUME 95.4 fL (75.5-95.3); PLATELET COUNT (AUTO) 145 K/uL (179-408)
[2022-03-22 02:23] LABS: CARBON DIOXIDE 33 mmol/L (21-32); CHLORIDE 102 mmol/L (98-107); CREATININE 0.9 mg/dL (0.6-1.3); GLUCOSE 131 mg/dL (74-106); POTASSIUM 4.8 mmol/L (3.5-5.1); UREA NITROGEN, BLOOD 21 mg/dL (7-18)
[2022-03-22 02:32] LABS: ALANINE AMINOTRANSFERASE 23 U/L (14-59); ALKALINE PHOSPHATASE 90 U/L (50-136); ASPARTATE AMINOTRANSFERASE 21 U/L (15-37); BILIRUBIN,DIRECT 0.1 mg/dL (0.0-0.2); BILIRUBIN,TOTAL 0.4 mg/dL (0.2-1.0); TOTAL PROTEIN, SERUM 6.9 g/dL (6.4-8.2)
[2022-03-22] MEDS ORDERED: IV NORMAL SALINE 1000 ML BAG IV ONE ×2 (02:45→03:00)
[2022-03-22 03:11] LABS: *BILIRUBIN,URIN NEGATIVE (NEGATIVE); *BLOOD, URINE NEGATIVE (NEGATIVE); *CLARITY,URINE CLEAR (CLEAR); *COLOR,URINE YELLOW (YELLOW); *KETONES,URINE TRACE (NEGATIVE); *UROBILINOGEN,URINE 0.2 E.U./dl (NORMAL); LEUKOCYTE ESTERASE ,URINE NEGATIVE (NEGATIVE); NITRITE, URINE NEGATIVE (NEGATIVE); PH,URINE 7.5 (5.0-8.0); UGLUCOSE NEGATIVE (NEGATIVE)
[2022-03-22] MEDS ORDERED: LINA145C PO (04:25)
[2022-03-22] MEDS ORDERED: LORA-259 PO (04:25)
[2022-03-22] MEDS ORDERED: MELA5TAB PO (04:25)
[2022-03-22] MEDS ORDERED: METH10OR11 PO (04:25)
[2022-03-22] MEDS ORDERED: GUAI120013 PO (04:25)
[2022-03-22] MEDS ORDERED: DIPH25CA83 PO (04:25)
[2022-03-22] MEDS ORDERED: HOME MED MISCELLANEOUS XX SCH (06:30)
[2022-03-22] MEDS ORDERED: REMEDY ESSENTIAL ZINC PASTE 113 GM TP PRN (06:30)
[2022-03-22] MEDS ORDERED: ONDANSETRON 4 MG/2 ML VIAL IV PRN (06:30)
[2022-03-22] MEDS ORDERED: MAGNESIUM HYDROXIDE 30 ML LIQUID UDC PO PRN (06:30)
[2022-03-22] MEDS ORDERED: TEMAZEPAM 15 MG CAPSULE PO PRN (06:30)
[2022-03-22] MEDS ORDERED: NALOXONE HCL 0.4 MG/ML AMPUL IV PRN (06:45)
[2022-03-22] MEDS ORDERED: MORPHINE SULFATE 2 MG/1 ML DISP.SYRIN ONE (06:53)
[2022-03-22] MEDS ORDERED: IBUPROFEN 400 MG TABLET PO ONE (07:00)
[2022-03-22] MEDS: PANTOPRAZOLE SODIUM 40 MG TABLET.DR PO SCH (07:00)
[2022-03-22] MEDS ORDERED: ACETAMINOPHEN 325 MG TABLET PO ONE (07:00)
[2022-03-22] MEDS ORDERED: ACETAMINOPHEN 325 MG TABLET ONE (07:08)
--- NOTE | 2022-03-22 08:07 | NUR ---
REPORT WAS GIVEN TO DIVINITY PROFESSOR. PT WAS TRANSFERED TO ROOM #[id number].
[2022-03-22 09:17] VITALS: BP 156/91
[2022-03-22] MEDS: ENOXAPARIN SODIUM 40 MG/0.4 ML DISP.SYRIN SQ SCH (10:35)
[2022-03-22] MEDS: IV NS 1000 ML 1,000 ML IV PRN (13:19)
[2022-03-22 15:07] VITALS: BP 160/80
[2022-03-22] MEDS ORDERED: HYDROMORPHONE 1 MG/1 ML DISP.SYRIN IV PRN (15:45)
--- NOTE | 2022-03-22 16:08 | NUR ---
I asked the patient about Linzess medication and she said she will ask someone to bring it to her here, but she didn't say when.
[2022-03-22] MEDS ORDERED: diphenhydrAMINE 25 MG CAP PO SCH (18:00)
[2022-03-22 21:06] VITALS: BP 155/87
[2022-03-23 00:38] VITALS: BP 165/89
[2022-03-23 04:25] VITALS: BP 133/61
--- NOTE | 2022-03-23 05:27 | NUR ---
SHIFT NOTE; RECEIVED PT AT START OF SHIFT ASLEEP BUT EASY TO AROUSE NO SIGNS OF RESPIRATORY DISTRESS NOTED. PT REQUESTED MEDICATION FOR SLEEP PT ON TELE SHOWING SINUS RHYTHM WILL CONTINUE TO MONITOR FOR SAFETY AND FALLS HOURLY.
[2022-03-23] MEDS: PANTOPRAZOLE SODIUM 40 MG TABLET.DR PO SCH (06:13)
[2022-03-23] MEDS ORDERED: METHADONE ORAL CONCENTRATE SOL 10 MG/ML ORAL.CONC PO ONE (09:00)
[2022-03-23] MEDS ORDERED: METHADONE PO SCH (09:00)
[2022-03-23] MEDS: ENOXAPARIN SODIUM 40 MG/0.4 ML DISP.SYRIN SQ SCH (09:20)
[2022-03-23] MEDS: LINZESS 145 MCG CAP PO SCH (09:50)
[2022-03-23 11:53] VITALS: BP 140/71
[2022-03-23] MEDS ORDERED: GUAI600T53 PO (15:24)
[2022-03-23] MEDS: IV NS 1000 ML 1,000 ML IV PRN (16:21)
[2022-03-23 17:02] VITALS: BP 136/70
[2022-03-23 20:04] VITALS: BP 125/65
[2022-03-24 00:40] VITALS: BP 146/71
[2022-03-24] MEDS: ACETAMINOPHEN 325 MG TABLET PO PRN ×2 (01:20→18:23)
[2022-03-24 04:10] VITALS: BP 146/69
[2022-03-24] MEDS: PANTOPRAZOLE SODIUM 40 MG TABLET.DR PO SCH (06:02)
[2022-03-24] MEDS: IV NS 1000 ML 1,000 ML IV PRN (06:03)
[2022-03-24 08:05] LABS: HEMATOCRIT 42.5 % (31.2-41.9); MAGNESIUM 1.8 mg/dL (1.8-2.4); MEAN CORPUSCULAR HEMOGLOBIN 31.7 uug (24.7-32.8); MEAN CORPUSCULAR VOLUME 96.9 fL (75.5-95.3); PHOSPHOROUS 3.9 mg/dL (2.5-4.9); PLATELET COUNT (AUTO) 125 K/uL (179-408)
[2022-03-24] MEDS: LINZESS 145 MCG CAP PO SCH (08:30)
[2022-03-24] MEDS: ENOXAPARIN SODIUM 40 MG/0.4 ML DISP.SYRIN SQ SCH (08:53)
[2022-03-24 08:59] LABS: THYROID STIMULATING HORMONE 0.928 mIU/mL (0.358-3.740)
[2022-03-24] MEDS ORDERED: METHADONE ORAL CONCENTRATE SOL 10 MG/ML ORAL.CONC PO SCH ×2 (09:00→11:08)
--- NOTE | 2022-03-24 09:00 | NUR ---
AWAKE ALERT AND ORIENTED ON O2 AT 2L/M BY NASAL CANULA WITH NO SOB AT THIS TIME.DENIES DISCOMFORTS AT THIS TIME CALL LIGHTS AND PERSOANL BELONGINGS ARE WITHIN EASY REACH MADE COMFORTABLE WILL CONTINUE TO OBSERVE.
[2022-03-24 09:26] LABS: BILIRUBIN,TOTAL 0.4 mg/dL (0.2-1.0); CREATININE 0.7 mg/dL (0.6-1.3); POTASSIUM 4.9 mmol/L (3.5-5.1); TOTAL PROTEIN, SERUM 6.6 g/dL (6.4-8.2)
[2022-03-24] MEDS: METHADONE ORAL CONCENTRATE SOL 10 MG/ML ORAL.CONC PO SCH (11:21)
[2022-03-24] MEDS ORDERED: IPRATROPIUM BROMIDE 0.5 MG/2.5 ML NEBU NEB PRN (11:30)
[2022-03-24] MEDS ORDERED: ALBUTEROL SULFATE 2.5 MG/ 0.5 ML NEBU NEB PRN (11:30)
[2022-03-24 11:36] VITALS: BP 138/72
--- NOTE | 2022-03-24 14:40 | NUR ---
Social work consult was requested for a patient on [facility] for substance abuse resources. Patient is 66-year-old female admitted to the hospital for a syncope. Patient is alert and oriented X2. Patient could not state the date or location. Patient appears lethargic. Patient presents with depressed mood and congruent affect. Patient states her primary doorperson is her friend, Cherrie Griggs ([phone]) and they have a good relationship. Patient states that she lives alone at [address] [place] [address] [place], [place] [id number]. The patient states that Cherrie ([phone]) calls or comes over every day to help the patient. Patient states she is retired, not driving, has a cane and walker at home. Patient states that she has a history of opioid abuse. There is no toxicology report. Patient states she stopped using opioids in November of 1998. Patient states she attended AA meetings and went to [facility]. SASHA provided patient substance abuse resources and medication assisted treatment from [address] [address] ([phone]), [facility] [address] [facility] [address] ([phone]), and [address] [address] ([phone]). SASHA placed the resources in the patients chart. Patient appeared appreciative of the resources. Patient denies a history of psychiatric diagnosis. Patient denies suicidal or homicidal ideation. SASHA spoke with supervisor case loading, Jung, and he states the patient will be going to the ARU.
[2022-03-24 16:00] VITALS: BP 113/52
[2022-03-24] MEDS: ENSURE ENLIVE (VAN) 240 ML LIQUID PO SCH (17:00)
[2022-03-24] MEDS: LORAZEPAM 0.5 MG TABLET PO PRN (18:23)
--- NOTE | 2022-03-24 18:29 | NUR ---
PATIENT COMPLAINED OF GENERALISED PAIN AND ANXIETY MEDICATED WITH ATIVAN AND TYLENOL ORDERED MADE COMFORTABLE WILL CONTINUE TO OBSERVE.
[2022-03-24 20:00] VITALS: BP 135/75
[2022-03-25] MEDS: IV NS 1000 ML 1,000 ML IV PRN (01:37)
[2022-03-25 04:00] VITALS: BP 122/65
[2022-03-25] MEDS: LORAZEPAM 0.5 MG TABLET PO PRN (04:45)
[2022-03-25] MEDS: PANTOPRAZOLE SODIUM 40 MG TABLET.DR PO SCH (06:03)
[2022-03-25] MEDS: LINZESS 145 MCG CAP PO SCH (08:31)
[2022-03-25] MEDS: ENOXAPARIN SODIUM 40 MG/0.4 ML DISP.SYRIN SQ SCH (08:34)
[2022-03-25] MEDS: METHADONE ORAL CONCENTRATE SOL 10 MG/ML ORAL.CONC PO SCH (08:51)
[2022-03-25] MEDS: ENSURE ENLIVE (VAN) 240 ML LIQUID PO SCH (09:16)
--- NOTE | 2022-03-25 10:32 | NUR ---
0730-PATIENT IN BED, AWAKE, A/OX4, ABLE TO COMMUNICATE HER NEEDS AND FOLLOW DIRECTIONS. REC'D WITH LEFT UPPER EYE LID SWOLLEN, PATIENT DENIES ANY PAIN. ON 2L OXYGEN VIA NC AND GRAY. WELL, NO RESPIRATORY DISTRESS NOTED. SAFETY MEASURES IN PLACE AND CALL LIGHT AT REACH. 0900-DUE MEDICATION ADMINISTERED ORDERED WITH NO ASE NOTED. PATIENT EATING BREAKFAST AT THIS TIME, NO SWALLOWING PROBLEMS NOTED. ORAL FLUIDS TAKEN WELL.
[2022-03-25 12:08] VITALS: BP 134/67
--- NOTE | 2022-03-25 13:19 | NUR ---
1200-PATIENT PULLED OUT ML FROM FELICITY, PATIENT STATED, "IT CAME OUT WHEN I TURNED, MAYBE I STRETCHED MY ARM TOO MUCH". DIRECT PRESSURE APPLIED TO PUNCTURE SITE AND A BAND-AID. NO C/O PAIN, 1230-PATIENT WAS ASSESSED BY HERMELINDO England AND TRANSITIONED TO ARU.
== END 2022-03-25 13:30 | DRG 551 ==
LOC: ER 01:10 → TELE3 08:08 → MEDSURG3 03-24 11:20
PROVIDERS: ADMIT Internal Medicine; ATTEND Registered Nurse
PROC: 05H633Z Insertion of Infusion Device into Left Subclavian Vein, Percutaneous Approach (ICD-10-PCS; principal; 2022-03-22)
PROC: B547ZZA Ultrasonography of Left Subclavian Vein, Guidance (ICD-10-PCS; 2022-03-22)
DX: S32.029A Unspecified fracture of second lumbar vertebra, initial encounter for closed fracture (principal); G92.8 Other toxic encephalopathy; D68.59 Other primary thrombophilia; J96.12 Chronic respiratory failure with hypercapnia; J96.11 Chronic respiratory failure with hypoxia; S32.039A Unspecified fracture of third lumbar vertebra, initial encounter for closed fracture; S32.049A Unspecified fracture of fourth lumbar vertebra, initial encounter for closed fracture; W01.0XXA Fall on same level from slipping, tripping and stumbling without subsequent striking against object, initial encounter; F17.210 Nicotine dependence, cigarettes, uncomplicated; Z20.822 Contact with and (suspected) exposure to COVID-19; Z99.81 Dependence on supplemental oxygen; Z86.16 Personal history of COVID-19; Z79.891 Long term (current) use of opiate analgesic; G89.4 Chronic pain syndrome; Y93.9 Activity, unspecified; Y92.009 Unspecified place in unspecified non-institutional (private) residence as the place of occurrence of the external cause; Z74.09 Other reduced mobility; F32.9 Major depressive disorder, single episode, unspecified; F41.9 Anxiety disorder, unspecified; M40.209 Unspecified kyphosis, site unspecified; T40.2X5A Adverse effect of other opioids, initial encounter; Y92.89 Other specified places as the place of occurrence of the external cause; J44.9 Chronic obstructive pulmonary disease, unspecified
CPT/HCPCS: 36415; 70450; 71045; 72125; 72131; 73502; 83735; 84100; 84443; 84484; 85025; 85730; 93005; 94640; 97161; A4663; A6213; G0378; J1650; J2270; J2405; J3590; J7040

== ENCOUNTER 2022-03-25 13:42 | Inpatient (IN) | payer MEDICARE, OTHER ==
[~2022-03-25] VITALS: Ht 162.6 cm; Wt 38.1 kg
[~2022-03-25 13:42] MED LIST changes: -ACET325T53 PO; -ACID1TAB4 PO; -ALBU1.25 NEB; -ALPR0.25 PO; -ASCO500C18 PO; -CEFT2VIA29 IV; +DIPH25CA83 PO; -ENOX40DI SQ; -GUAI120013 PO; +GUAI600T53 PO; -HYDR-894 PO; -IPRA0.2S6 NEB; -LACT296L PO; +LINA145C PO; -MAGN400O6 PO; +MELA5TAB PO; -MENT71OI TOP; -NUTR1PAC14 PO; -OLME40TA12 PO; -PANT40TA49 PO; -SODI480S2 TOP; -ZINC220T4 PO
[2022-03-25] MEDS ORDERED: NALOXONE HCL 0.4 MG/ML AMPUL IV PRN (14:00)
[2022-03-25 16:00] VITALS: BP 146/69
[2022-03-25] MEDS: LORAZEPAM 1 MG TABLET PO SCH (17:31)
[2022-03-25 20:00] VITALS: BP 167/75
[2022-03-25] MEDS: GUAIFENESIN LA 600 MG TABLET.SA PO SCH (21:03)
[2022-03-25] MEDS: MELATONIN 3 MG TABLET PO SCH (21:04)
--- NOTE | 2022-03-26 01:26 | NUR ---
ENTRY FOR 03/25/22 @ 8714 PATIENT WAS TRANSITIONED FROM MS TO ARU.
--- NOTE | 2022-03-26 01:27 | NUR ---
2100 03/25/22-SCHEDULED/DUE MEDICATION ADMINISTERED, PATIENT COMPLIANT WITH CARE AND TREATMENT. ORAL FLUIDS TAKEN WELL. SAFETY MEASURES IN PLACE AND CALL LIGHT AT REACH.
--- NOTE | 2022-03-26 01:28 | NUR ---
PATIENT ASLEEP, SAFETY MEASURES IN PLACE. ROUTINE ROUNDS AND FREQUENT VISUAL CHECKS DONE. CALL LIGHT AT REACH.
[2022-03-26 04:00] VITALS: BP 154/71
[2022-03-26] MEDS: PANTOPRAZOLE SODIUM 40 MG TABLET.DR PO SCH (06:17)
[2022-03-26 07:47] VITALS: BP 145/68
[2022-03-26] MEDS: METHADONE ORAL CONCENTRATE SOL 10 MG/ML ORAL.CONC PO SCH (08:14)
[2022-03-26] MEDS: GUAIFENESIN LA 600 MG TABLET.SA PO SCH ×2 (08:15→21:13)
[2022-03-26] MEDS: LORAZEPAM 1 MG TABLET PO SCH ×3 (08:15→17:35)
[2022-03-26] MEDS: LINZESS 145 MCG CAPSULE PO SCH (08:16)
[2022-03-26] MEDS ORDERED: MISCELLANEOUS MED PO SCH (09:00)
[2022-03-26] MEDS ORDERED: METHADONE HCL 10 MG TABLET PO SCH (09:00)
--- NOTE | 2022-03-26 15:44 | NUR ---
INTERDISCIPLINARY TEAM CONFERENCE
[2022-03-26 15:48] VITALS: BP 126/73
[2022-03-26 20:00] VITALS: BP 141/64
[2022-03-26] MEDS: MELATONIN 3 MG TABLET PO SCH (21:14)
[2022-03-27 04:00] VITALS: BP 168/79
[2022-03-27] MEDS: PANTOPRAZOLE SODIUM 40 MG TABLET.DR PO SCH (06:04)
[2022-03-27] MEDS: MAGNESIUM HYDROXIDE 30 ML LIQUID UDC PO PRN (06:16)
[2022-03-27 08:00] VITALS: BP 165/83
[2022-03-27] MEDS: METHADONE ORAL CONCENTRATE SOL 10 MG/ML ORAL.CONC PO SCH (08:50)
[2022-03-27] MEDS: GUAIFENESIN LA 600 MG TABLET.SA PO SCH ×2 (08:50→22:03)
[2022-03-27] MEDS: LORAZEPAM 1 MG TABLET PO SCH ×3 (08:50→17:01)
[2022-03-27] MEDS: LINZESS 145 MCG CAPSULE PO SCH (09:00)
--- NOTE | 2022-03-27 09:00 | NUR ---
PATIENT IN BED AWAKE ALERT AND ORIENTED ON O2 ORDERED WITH NO S/S OF SHORTNESS OF BREATH ON ROUTINE METHADONE GIVEN ORDERED WILL CONTINUE ON PT/OT ORDERED WILL CONTINUE to observe.
[2022-03-27] MEDS: PROTEIN SUPPLEMENT (PROSTAT) 30 ML LIQUID PO SCH (16:11)
[2022-03-27] MEDS: ENSURE ENLIVE (VAN) 240 ML LIQUID PO SCH (16:11)
[2022-03-27 16:38] VITALS: BP 140/80
--- NOTE | 2022-03-27 18:00 | NUR ---
CONTINUE WITH PAIN MANAGEMENT ORDERED AND HELPFUL AMBULATORY WITH FWW WITH SLOW STEADY GAIT WITH MIN ASSIST WILL CONTINUE TO OBSERVE.
[2022-03-27 20:00] VITALS: BP 112/92
[2022-03-27] MEDS: MELATONIN 3 MG TABLET PO SCH (21:00)
[2022-03-27] MEDS: diphenhydrAMINE 25 MG CAP PO PRN (22:03)
[2022-03-28 04:00] VITALS: BP 168/86
[2022-03-28] MEDS: PANTOPRAZOLE SODIUM 40 MG TABLET.DR PO SCH (07:08)
[2022-03-28] MEDS: LORAZEPAM 1 MG TABLET PO SCH ×3 (08:18→17:14)
[2022-03-28] MEDS: METHADONE ORAL CONCENTRATE SOL 10 MG/ML ORAL.CONC PO SCH (08:18)
[2022-03-28] MEDS: PROTEIN SUPPLEMENT (PROSTAT) 30 ML LIQUID PO SCH (08:19)
[2022-03-28] MEDS: GUAIFENESIN LA 600 MG TABLET.SA PO SCH ×2 (08:19→20:12)
--- NOTE | 2022-03-28 08:45 | NUR ---
PT IS ALERT AND ORIENTED X4 NO SIGNS OF RESPIRATORY DISTRESS NOTED. PT ON CONTACT ISOLATION FOR MRSA IN THE WOUND OF THE LEFT HIP. PT HAD ONE LARGE STOOL PT DENIES PAIN THROUGHOUT THE SHIFT. MEDICATION GIVEN ORDERED NO SIGNS OF ADVERSE REACTION NOTED. CONTACT ISOLATION MAINTAINED. ENDORSED TO AM NURSE.
[2022-03-28] MEDS: LINZESS 145 MCG CAPSULE PO SCH (09:18)
[2022-03-28] MEDS: ENSURE ENLIVE (VAN) 240 ML LIQUID PO SCH ×3 (09:19→17:14)
--- NOTE | 2022-03-28 11:03 | NUR ---
INDIVIDUALIZED PLAN OF CARE
--- NOTE | 2022-03-28 15:47 | NUR ---
INDIVIDUALIZED PLAN OF CARE
[2022-03-28 16:00] VITALS: BP 135/92
[2022-03-28 20:05] VITALS: BP 136/90
[2022-03-28] MEDS: MELATONIN 3 MG TABLET PO SCH (20:12)
--- NOTE | 2022-03-28 20:30 | NUR ---
NSG: RECEIVED PATIENT AMBULATING IN HER ROOM. ALERT AND ORIENTED X3. PLEASANT UPON APPROACH. SCHEDULED/DUE MEDICATION ADMINISTERED, PATIENT COMPLIANT WITH CARE AND TREATMENT. SAFETY MEASURES IN PLACE. CALL LIGHT W/IN REACH.
[2022-03-29 04:00] VITALS: BP 124/74
[2022-03-29] MEDS: PANTOPRAZOLE SODIUM 40 MG TABLET.DR PO SCH ×3 (06:11→08:55)
--- NOTE | 2022-03-29 06:33 | NUR ---
GPS: Remain calm and cooperative. with meds and care. no c/o pain or discomfort at this time. resting in bed comfortably. call light w/in reach.
[2022-03-29 07:32] VITALS: BP 134/90
[2022-03-29] MEDS: GUAIFENESIN LA 600 MG TABLET.SA PO SCH ×2 (08:52→21:08)
[2022-03-29] MEDS: LORAZEPAM 1 MG TABLET PO SCH ×3 (08:52→17:14)
[2022-03-29] MEDS: PROTEIN SUPPLEMENT (PROSTAT) 30 ML LIQUID PO SCH (08:52)
[2022-03-29] MEDS: LINZESS 145 MCG CAPSULE PO SCH (08:52)
[2022-03-29] MEDS: ENSURE ENLIVE (VAN) 240 ML LIQUID PO SCH ×3 (08:53→17:14)
[2022-03-29] MEDS: MAGNESIUM HYDROXIDE 30 ML LIQUID UDC PO PRN (08:54)
[2022-03-29] MEDS: METHADONE ORAL CONCENTRATE SOL 10 MG/ML ORAL.CONC PO SCH (09:01)
--- NOTE | 2022-03-29 15:20 | NUR ---
Pt is a 66 year old female who came from home complaining of Syncope' left hip wound MRSA. She is alert and oriented x3-4. Found walking around with front wheel walker. She has Left forearm g-22. Pt is full code with allergies of levofloacin, Meperidine, and Morphine. Normal air movement and no apparent distress is noted. Patient is able to verbalize needs and pills are taken whole.
[2022-03-29 16:11] VITALS: BP 136/76
--- NOTE | 2022-03-29 19:37 | NUR ---
NSG: RECEIVED PATIENT SITTING IN HER BED EATING DINNER. ALERT AND ORIENTED X3, PLEASANT UPON APPROACH. ON O2 @ 2L/MIN VIA N/C ORDERED. NO S/S OF SHORTNESS OF BREATH NOTED AT THIS TIME. PATIENT AMBULATE WITH FWW .CALL LIGHT W/IN REACH.
[2022-03-29] MEDS: MELATONIN 3 MG TABLET PO SCH (21:09)
--- NOTE | 2022-03-30 00:30 | NUR ---
patient unable to sleep. Benadryl 25 mg po given per patient requested.
[2022-03-30] MEDS: diphenhydrAMINE 25 MG CAP PO PRN ×2 (00:32→20:24)
--- NOTE | 2022-03-30 00:56 | NUR ---
patient is alert, oriented x4, no sob, respirations are even nonlabored, skin warm and dry to touch, during rounding patient noted sitting on the floor next to her bed by her primary nurse. assessment performed, both upper and lower extremities ROM is active, no limitations noted, patient denied any pain. asked patient why she is was sitting on the floor, patient stated she fell, while she was coming back from bathroom. her leg just gave up on her. Neuro check performed, PERRLA intact, WNL. no clinical indication noted for any kind of injury at this time, patient stated she did not hit her head. patient is laying bed at this time, denied any pain or discomfort, personal belongings are in reach. reinforced teaching about safety, to call for help for catalog library assistant. patient verbalized understanding of it. will continue to monitor. current vitals are blood pressure 133/70, pulse 58, respirations 16, saturating at 94% room air. Addendum: 03/30/22 at 0711 by KIM FAIRBANKS RN, RN HERMELINDO Reyes made aware. patient stated she does not have any family to inform
[2022-03-30 01:05] VITALS: BP 133/70
[2022-03-30 04:00] VITALS: BP 143/76
--- NOTE | 2022-03-30 05:28 | NUR ---
nsg: patient is resting in bed comfortably. v/s wnl. no c/o pain or discomfort at this time. assisted to use bathroom and back to bed. call light w/in reach.
[2022-03-30 07:42] VITALS: BP 143/73
[2022-03-30] MEDS: LORAZEPAM 1 MG TABLET PO SCH ×3 (08:11→16:26)
[2022-03-30] MEDS: ENSURE ENLIVE (VAN) 240 ML LIQUID PO SCH ×3 (08:11→16:26)
[2022-03-30] MEDS: PROTEIN SUPPLEMENT (PROSTAT) 30 ML LIQUID PO SCH (08:11)
[2022-03-30] MEDS: METHADONE ORAL CONCENTRATE SOL 10 MG/ML ORAL.CONC PO SCH (08:11)
[2022-03-30] MEDS: GUAIFENESIN LA 600 MG TABLET.SA PO SCH ×2 (08:11→20:12)
[2022-03-30] MEDS: LINZESS 145 MCG CAPSULE PO SCH (08:24)
[2022-03-30] MEDS: ACETAMINOPHEN 325 MG TABLET PO PRN (14:57)
[2022-03-30 17:04] VITALS: BP 125/68
[2022-03-30 20:00] VITALS: BP 120/57
[2022-03-30] MEDS: MELATONIN 3 MG TABLET PO SCH (20:12)
[2022-03-31 04:00] VITALS: BP 134/57
[2022-03-31] MEDS: PANTOPRAZOLE SODIUM 40 MG TABLET.DR PO SCH (06:12)
[2022-03-31 07:43] VITALS: BP 146/74
[2022-03-31] MEDS: METHADONE ORAL CONCENTRATE SOL 10 MG/ML ORAL.CONC PO SCH (08:10)
[2022-03-31] MEDS: ENSURE ENLIVE (VAN) 240 ML LIQUID PO SCH ×3 (08:10→17:18)
[2022-03-31] MEDS: PROTEIN SUPPLEMENT (PROSTAT) 30 ML LIQUID PO SCH (08:10)
[2022-03-31] MEDS: LINZESS 145 MCG CAPSULE PO SCH (08:10)
[2022-03-31] MEDS: GUAIFENESIN LA 600 MG TABLET.SA PO SCH ×2 (08:10→20:02)
[2022-03-31] MEDS: LORAZEPAM 1 MG TABLET PO SCH ×3 (08:10→16:12)
[2022-03-31 16:46] VITALS: BP 120/66
[2022-03-31 20:00] VITALS: BP 120/74
[2022-03-31] MEDS: MELATONIN 3 MG TABLET PO SCH (20:02)
[2022-04-01 04:00] VITALS: BP 131/68
[2022-04-01] MEDS: PANTOPRAZOLE SODIUM 40 MG TABLET.DR PO SCH (06:03)
[2022-04-01 07:54] VITALS: BP 137/63
[2022-04-01] MEDS: PROTEIN SUPPLEMENT (PROSTAT) 30 ML LIQUID PO SCH (07:59)
[2022-04-01] MEDS: LINZESS 145 MCG CAPSULE PO SCH (09:07)
[2022-04-01] MEDS: METHADONE ORAL CONCENTRATE SOL 10 MG/ML ORAL.CONC PO SCH (09:07)
[2022-04-01] MEDS: LORAZEPAM 1 MG TABLET PO SCH (09:08)
[2022-04-01] MEDS: ENSURE ENLIVE (VAN) 240 ML LIQUID PO SCH ×3 (09:08→17:38)
[2022-04-01] MEDS: GUAIFENESIN LA 600 MG TABLET.SA PO SCH ×2 (09:08→20:33)
--- NOTE | 2022-04-01 10:30 | NUR ---
seen by Dr Em
--- NOTE | 2022-04-01 12:40 | NUR ---
WOUND CARE CONSULT: PT PRESENTS WITH LEFT HIP STAGE 4 ULCER WITH MINIMAL DRAINAGE AND SCARRING/DISCOLORATION TO SACRAL AREA, PRESENT ON ADMISSION. PT IS EXTREMELY THIN AND BONY. DR MONGE NOTIFIED OF SURGICAL CONSULT REQUEST. RECOMMENDATIONS MADE FOR SKIN PROTECTION. DISCUSSED WITH NURSING STAFF. MD IN AGREEMENT WITH PLAN OF CARE.
[2022-04-01 16:00] VITALS: BP 148/73
--- NOTE | 2022-04-01 18:22 | NUR ---
pneip4xf in bed, no distress noted, left hip dsg change done- washed with saline and foam dsg applied to left hip and sacral area, repositioned q 2h with heels off loaded, all needs attended and met, call light within reach
[2022-04-01] MEDS: MIRTAZAPINE 15 MG TABLET PO SCH (20:33)
[2022-04-01] MEDS: MELATONIN 3 MG TABLET PO SCH (20:33)
[2022-04-01] MEDS: HYDROXYZINE PAMOATE 25 MG CAPSULE PO PRN (20:34)
[2022-04-01 21:33] VITALS: BP 140/64
[2022-04-01] MEDS: LORAZEPAM 0.5 MG TABLET PO PRN (21:35)
[2022-04-01] MEDS: diphenhydrAMINE 25 MG CAP PO PRN (21:35)
--- NOTE | 2022-04-02 04:01 | NUR ---
AAOx3-4 forgetful at times. Admitted for syncopal episode and left hip MRSA. Contact isolation maintained. VSS Needs attended. No acute distress noted. Ambulatory ad ida. Continent of bowel and bladder. All due meds given. Patient at beginning of shift wants to leave AMA, since she said she dont get her meds the way she wanted. After a while, patient change her mind and refuse to leave AMA. Left hip dressing clean no drainage noted, dressing applied. Will monitor patient. Ativan given for anxiety.
[2022-04-02 04:38] VITALS: BP 136/66
[2022-04-02] MEDS: PANTOPRAZOLE SODIUM 40 MG TABLET.DR PO SCH (06:05)
[2022-04-02 08:04] VITALS: BP 127/71
[2022-04-02] MEDS: METHADONE ORAL CONCENTRATE SOL 10 MG/ML ORAL.CONC PO SCH (08:34)
[2022-04-02] MEDS: PROTEIN SUPPLEMENT (PROSTAT) 30 ML LIQUID PO SCH (08:34)
[2022-04-02] MEDS: LINZESS 145 MCG CAPSULE PO SCH (08:34)
[2022-04-02] MEDS: GUAIFENESIN LA 600 MG TABLET.SA PO SCH ×2 (08:34→20:49)
[2022-04-02] MEDS: ENSURE ENLIVE (VAN) 240 ML LIQUID PO SCH ×3 (08:35→17:00)
[2022-04-02 11:53] VITALS: BP 127/71
--- NOTE | 2022-04-02 14:01 | NUR ---
INTERDISCIPLINARY TEAM CONFERENCE
[2022-04-02 16:00] VITALS: BP 99/69
--- NOTE | 2022-04-02 17:36 | NUR ---
0730-Rec'd patient in bed, awake, alert and oriented. Patient able to verbalize her needs. Denies any pain, safety measures in place and call light at reach. 0900-Scheduled/due medication administered with no ASE, patient swallows pills whole, oral fluids encouraged as brad. and taken well. Patient with good appetite, still eating her breakfast, supervision and assist provided. 1500-Assisted to the bathroom Q2HRs and as needed/requested by patient. Care provided at routine intervals. Patient compliant with care/treatment and cooperative with staff. Actively able to participate in her PT/OT sessions. Fall precautions observed. 1700-Treatment provided to left hip wound, no bleeding/drainage to site noted. Clean DD in place. Patient was also re-eval by vector control specialist, Keli please see orders.
[2022-04-02 20:00] VITALS: BP 110/63
[2022-04-02] MEDS: MIRTAZAPINE 15 MG TABLET PO SCH (20:49)
[2022-04-02] MEDS: MELATONIN 3 MG TABLET PO SCH (20:50)
[2022-04-02] MEDS: diphenhydrAMINE 25 MG CAP PO PRN (20:59)
[2022-04-02] MEDS: LORAZEPAM 0.5 MG TABLET PO PRN (21:59)
[2022-04-03 04:00] VITALS: BP 149/76
[2022-04-03] MEDS: PANTOPRAZOLE SODIUM 40 MG TABLET.DR PO SCH ×3 (06:24→07:52)
[2022-04-03 07:30] VITALS: BP 100/52
[2022-04-03] MEDS: GUAIFENESIN LA 600 MG TABLET.SA PO SCH ×2 (08:49→20:20)
[2022-04-03] MEDS: LINZESS 145 MCG CAPSULE PO SCH (08:49)
[2022-04-03] MEDS: METHADONE ORAL CONCENTRATE SOL 10 MG/ML ORAL.CONC PO SCH (08:50)
[2022-04-03] MEDS: PROTEIN SUPPLEMENT (PROSTAT) 30 ML LIQUID PO SCH (08:53)
[2022-04-03] MEDS: ENSURE ENLIVE (VAN) 240 ML LIQUID PO SCH ×3 (08:54→17:15)
[2022-04-03] MEDS: MAGNESIUM HYDROXIDE 30 ML LIQUID UDC PO PRN (10:04)
[2022-04-03] MEDS: LORAZEPAM 0.5 MG TABLET PO PRN ×2 (10:04→20:37)
[2022-04-03] MEDS: ACETAMINOPHEN 325 MG TABLET PO PRN ×2 (13:29→20:21)
[2022-04-03 16:00] VITALS: BP 117/61
[2022-04-03 20:00] VITALS: BP 143/85
[2022-04-03] MEDS: MIRTAZAPINE 15 MG TABLET PO SCH (20:21)
[2022-04-03] MEDS: MELATONIN 3 MG TABLET PO SCH (20:32)
[2022-04-04 04:00] VITALS: BP 128/70
--- NOTE | 2022-04-04 04:56 | NUR ---
04/03/22-2100: Due medication administered as ordered with no ASE noted. Oral fluids taken taken well. Care provided at routine intervals, assist to the restroom and with bed jacobs as needed; a safe and quiet/dim lights environment provided. Encouraged and assist with repositioning in bed Q2HRS to promote comfort and facilitate pressure relief; safety precautions observed. Handled gently and carefully during care. Routine rounds and frequent visual checks done. Call light within reach. 04/04/226: Patient sleeping comfortably at this time. On R/A, no acute respiratory distress/use of accessory muscles noted. Patient able to wake up on verbal commands. Oral fluids taken well. Frequent visual checks done to ensure safety. All needs anticipated and attended well. No unusual events.
[2022-04-04] MEDS: METHADONE ORAL CONCENTRATE SOL 10 MG/ML ORAL.CONC PO SCH (08:15)
[2022-04-04 08:29] VITALS: BP 150/73
[2022-04-04] MEDS: SENNOSIDES/DOCUSATE SODIUM TABLET PO SCH (08:44)
[2022-04-04] MEDS: LINZESS 145 MCG PO SCH (08:44)
[2022-04-04] MEDS: PROTEIN SUPPLEMENT (PROSTAT) 30 ML LIQUID PO SCH (08:44)
[2022-04-04] MEDS: GUAIFENESIN LA 600 MG TABLET.SA PO SCH ×2 (08:44→21:02)
[2022-04-04] MEDS: ENSURE ENLIVE (VAN) 240 ML LIQUID PO SCH ×3 (08:45→16:57)
[2022-04-04] MEDS ORDERED: PANTOPRAZOLE SODIUM 40 MG TABLET.DR PO SCH (09:00)
[2022-04-04] MEDS: PANTOPRAZOLE SODIUM 40 MG TABLET.DR PO SCH (15:09)
[2022-04-04 16:06] VITALS: BP 114/79
[2022-04-04] MEDS: ACETAMINOPHEN 325 MG TABLET PO PRN ×2 (17:07→23:32)
[2022-04-04] MEDS: LORAZEPAM 0.5 MG TABLET PO PRN ×2 (17:08→23:32)
[2022-04-04 20:38] VITALS: BP 165/72
[2022-04-04] MEDS: MELATONIN 3 MG TABLET PO SCH (21:02)
[2022-04-04] MEDS: HYDROXYZINE PAMOATE 25 MG CAPSULE PO PRN (21:02)
[2022-04-04] MEDS: MIRTAZAPINE 15 MG TABLET PO SCH (21:02)
--- NOTE | 2022-04-05 03:45 | NUR ---
AAOx3-4 forgetful at times. OOB to the BR Voiding well. BM noted this shift. All needs attended. VSS All due meds given without difficulty. No acute distress noted. Will monitor patient. Fall precautions maintained. Left hip wound intact. MRSA (+) left hip. Kept comfortable.
[2022-04-05 04:00] VITALS: BP 145/72
--- NOTE | 2022-04-05 07:41 | NUR ---
0710-Patient in bed, asleep, able to wake up on verbal commands, denies pain. On oxygen via nc as ordered, no respiratory distress noted. Call light at reach.
[2022-04-05 08:00] VITALS: BP 152/76
[2022-04-05] MEDS: SENNOSIDES/DOCUSATE SODIUM TABLET PO SCH (08:37)
[2022-04-05] MEDS: GUAIFENESIN LA 600 MG TABLET.SA PO SCH ×2 (08:37→20:40)
[2022-04-05] MEDS: PROTEIN SUPPLEMENT (PROSTAT) 30 ML LIQUID PO SCH (08:37)
[2022-04-05] MEDS: LINZESS 145 MCG PO SCH (08:38)
[2022-04-05] MEDS: METHADONE ORAL CONCENTRATE SOL 10 MG/ML ORAL.CONC PO SCH (08:45)
[2022-04-05] MEDS ORDERED: HYDROCODONE/APAP 5-325MG TABLET PO PRN (08:45)
[2022-04-05] MEDS: ENSURE ENLIVE (VAN) 240 ML LIQUID PO SCH ×3 (09:30→17:18)
[2022-04-05] MEDS: LORAZEPAM 0.5 MG TABLET PO PRN ×3 (09:58→21:11)
[2022-04-05] MEDS: ACETAMINOPHEN 325 MG TABLET PO PRN ×2 (09:58→20:58)
[2022-04-05] MEDS: PANTOPRAZOLE SODIUM 40 MG TABLET.DR PO SCH (15:24)
[2022-04-05] MEDS: diphenhydrAMINE 25 MG CAP PO PRN ×3 (15:35→23:23)
[2022-04-05 16:20] VITALS: BP 117/58
--- NOTE | 2022-04-05 18:28 | NUR ---
Patient in bed, resting comfortably, awake and watching TV. Patient denies pain, no physical or respiratory distress noted; left hip wound, treatment provided, sacral redness kept off pressure, picture updated of said affected areas. Obtained orders from Dr. Flores for Benadryl 25mg PRN Q8HRS. orders noted and carried out.
[2022-04-05 20:00] VITALS: BP 155/77
[2022-04-05] MEDS: MELATONIN 3 MG TABLET PO SCH (20:40)
[2022-04-05] MEDS: MIRTAZAPINE 15 MG TABLET PO SCH (20:40)
[2022-04-05] MEDS: NAPROXEN 500 MG TABLET PO PRN ×2 (20:58→21:10)
[2022-04-06 05:05] VITALS: BP 123/76
--- NOTE | 2022-04-06 05:58 | NUR ---
RECEIVED REPORT FROM AM NURSE JOESPH PT IS ALERT AND ORIENTED X4. ASSISTED PT TO BATHROOM SO CAN BRUSH TEETH. ASSISTED PT BACK TO BED. MEDICATION GIVEN ORDERS. NO ADVERSE REACTION NOTED FROM MEDICATION. PT DOES WELL IN USING WALKER. PT MONITORED HOURLY FOR FALLS OTHER NEEDS WILL ENDORSE TO AM NURSE.
[2022-04-06 07:50] VITALS: BP 128/76
[2022-04-06] MEDS: METHADONE ORAL CONCENTRATE SOL 10 MG/ML ORAL.CONC PO SCH (09:14)
[2022-04-06] MEDS: SENNOSIDES/DOCUSATE SODIUM TABLET PO SCH (09:15)
[2022-04-06] MEDS: diphenhydrAMINE 25 MG CAP PO PRN (09:15)
[2022-04-06] MEDS: GUAIFENESIN LA 600 MG TABLET.SA PO SCH ×2 (09:15→21:00)
[2022-04-06] MEDS: LINZESS 145 MCG PO SCH (09:15)
[2022-04-06] MEDS: PROTEIN SUPPLEMENT (PROSTAT) 30 ML LIQUID PO SCH (09:16)
[2022-04-06] MEDS: ENSURE ENLIVE (VAN) 240 ML LIQUID PO SCH ×2 (09:16→17:10)
[2022-04-06] MEDS: LORAZEPAM 0.5 MG TABLET PO PRN ×2 (09:59→23:40)
[2022-04-06] MEDS: [UNRECOGNIZED DRUG - OTHER] PO PRN (11:49)
[2022-04-06] MEDS: DIPHENHYDRAMINE 25 MG PO PRN (11:49)
[2022-04-06 15:46] VITALS: BP 139/87
[2022-04-06] MEDS: PANTOPRAZOLE SODIUM 40 MG TABLET.DR PO SCH (15:59)
[2022-04-06 20:00] VITALS: BP 135/76
[2022-04-06] MEDS: MELATONIN 3 MG TABLET PO SCH (21:00)
[2022-04-06] MEDS: MIRTAZAPINE 15 MG TABLET PO SCH (21:00)
[2022-04-07] MEDS ORDERED: diphenhydrAMINE 25 MG CAP PO ONE (00:16)
[2022-04-07] MEDS: [UNRECOGNIZED DRUG - OTHER] PO PRN ×2 (00:27→09:20)
[2022-04-07] MEDS: DIPHENHYDRAMINE 25 MG PO PRN ×2 (00:27→09:20)
--- NOTE | 2022-04-07 06:00 | NUR ---
--PT CONT WITH STABLE VS. PT WAS ANGRY AND AGGITATED REGARDING HER BENADRYL MED. CN GLORY SPOKE PT AND PT CONCERNS AND ANXIETY WERE RESOLVED. PT SLEEPING THROUGH THE REMAINDER OF THE NIGHT WITH O2 2L/NC. PT ABLE TO GO TO BR W/O ASST USING WALKER. GEN COND HAS BEEN STABLE. [place] VARGHESE
[2022-04-07 07:30] VITALS: BP 143/73
[2022-04-07] MEDS: METHADONE ORAL CONCENTRATE SOL 10 MG/ML ORAL.CONC PO SCH (08:04)
[2022-04-07] MEDS: GUAIFENESIN LA 600 MG TABLET.SA PO SCH (08:05)
[2022-04-07] MEDS: SENNOSIDES/DOCUSATE SODIUM TABLET PO SCH (08:05)
[2022-04-07] MEDS: ENSURE ENLIVE (VAN) 240 ML LIQUID PO SCH ×2 (08:05→16:13)
[2022-04-07] MEDS: LINZESS 145 MCG PO SCH (08:05)
[2022-04-07] MEDS: LORAZEPAM 0.5 MG TABLET PO PRN (11:48)
--- NOTE | 2022-04-07 13:41 | NUR ---
REPORT GIVEN TO [facility], NAME KEDAR VARGHESE
[2022-04-07 15:29] VITALS: BP 161/86
[2022-04-07] MEDS: PANTOPRAZOLE SODIUM 40 MG TABLET.DR PO SCH (15:50)
--- NOTE | 2022-04-07 17:04 | NUR ---
patient is alert, oriented x4, no sob, respirations are even nonlabored, skin warm and dry to touch, patient is very anxious, tried to calm her down and answered her questions appropriately. ambulatory with FWW. wound care provided to left hip, and sacral area, no distress noted, removed ID, no IV access no patient, patient own medications given to pattern finisher, which includes Ativan bottle and methadone bottles. EMT acknowledged it.
--- NOTE | 2022-04-07 17:09 | NUR ---
Patient discharged with DENTAL AIDE.
== END 2022-04-07 15:15 | DRG 91 ==
PROVIDERS: ADMIT Physical Medicine & Rehabilitation Pain Medicine; ATTEND Physical Medicine & Rehabilitation Pain Medicine
DX: R26.81 Unsteadiness on feet (principal); G92.8 Other toxic encephalopathy; L89.224 Pressure ulcer of left hip, stage 4; D68.59 Other primary thrombophilia; J96.10 Chronic respiratory failure, unspecified whether with hypoxia or hypercapnia; T40 Poisoning by, adverse effect of and underdosing of narcotics and psychodysleptics [hallucinogens]; S32.029D Unspecified fracture of second lumbar vertebra, subsequent encounter for fracture with routine healing; S32.039D Unspecified fracture of third lumbar vertebra, subsequent encounter for fracture with routine healing; S32.049D Unspecified fracture of fourth lumbar vertebra, subsequent encounter for fracture with routine healing; W18.30XD Fall on same level, unspecified, subsequent encounter; G89.4 Chronic pain syndrome; J44.9 Chronic obstructive pulmonary disease, unspecified; M40.209 Unspecified kyphosis, site unspecified; L89.229 Pressure ulcer of left hip, unspecified stage; R62.7 Adult failure to thrive; Z86.16 Personal history of COVID-19; Z91.81 History of falling; M51.36 Other intervertebral disc degeneration, lumbar region; M43.16 Spondylolisthesis, lumbar region; Z87.891 Personal history of nicotine dependence; Z99.81 Dependence on supplemental oxygen; F32.A Depression, unspecified; F41.9 Anxiety disorder, unspecified; R29.6 Repeated falls; R53.1 Weakness; Z88.1 Allergy status to other antibiotic agents; Z88.5 Allergy status to narcotic agent; Z88.8 Allergy status to other drugs, medicaments and biological substances; F11.11 Opioid abuse, in remission
CPT/HCPCS: 93005; 97535-GO-CO; A6209; A6213; J7040; Q0163